=== PATIENT | female | born 1985 | race Caucasian/White ===

== ENCOUNTER 2016-10-20 22:50 | Emergency (ER) | payer MEDICAID ==
[2016-10-21] MEDS ORDERED: HYDROCODONE/ACETAMINOPHEN 5-325 MG 6 TAB/DSPK PO PRN (01:23)
--- NOTE | 2016-10-21 01:25 | ER Document Report ---
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 States she's had this pain for the past 3 weeks and is pending a consultation with vascular surgery at [place] for possible correction of this AV malformation became to the emergency department today as she could not sleep secondary to the pain in her hand. Nothing improves or worsens the pain. She has been trying ibuprofen. Denies any focal weakness or numbness. TRAVEL OUTSIDE OF THE U[place] IN LAST 30 DAYS: No - Related Data Allergies/Adverse Reactions: lithium [[place]] Allergy (Intermediate, Verified 10/20/16 23:03) Hives Past Medical History - General Information source: Patient - Social History Smoking Status: Never Smoker Frequency of alcohol use: None Drug Abuse: None Lives with: Spouse/Significant other Family History: Reviewed & Not Pertinent Neurological Medical History: Denies: Hx Seizures Renal/ Medical History: Denies: Hx Peritoneal Dialysis Musculoskeltal Medical History: Denies Hx Arthritis Psychiatric Medical History: Reports: Hx Bipolar Disorder, Hx Depression Past Surgical History: Reports: Hx Section, Hx Cholecystectomy, Hx Orthopedic Surgery, Hx Tubal Ligation, 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 Denies: Hx Hysterectomy - Immunizations Hx Diphtheria, Pertussis, Tetanus Vaccination: Yes Review of Systems - Review of Systems Notes: Constitutional: Negative for fever. HENT: Negative for sore throat. Eyes: Negative for visual changes. Cardiovascular: Negative for chest pain. Respiratory: Negative for shortness of breath. Gastrointestinal: Negative for abdominal pain, vomiting or diarrhea. Genitourinary: Negative for dysuria. Musculoskeletal: Positive for right hand pain Skin: Negative for rash. Neurological: Negative for headaches, weakness or numbness. 10 point ROS negative except as marked above and in HPI. Physical Exam - Vital signs Vitals: Temp Pulse Resp BP Pulse Ox 97.5 F 80 20 116/75 97 10/20/16 23:05 10/20/16 23:05 10/20/16 23:05 10/20/16 23:05 10/20/16 23:05 Interpretation: Normal Notes: PHYSICAL EXAMINATION: GENERAL: Well-appearing, well-nourished and in no acute distress. HEAD: Atraumatic, normocephalic. EYES: Pupils equal round and reactive to light, extraocular movements intact, sclera anicteric, conjunctiva are normal. ENT: nares patent, oropharynx clear without exudates. Moist mucous membranes. NECK: Normal range of motion, supple without lymphadenopathy LUNGS: Breath sounds clear to auscultation bilaterally and equal. No wheezes rales or rhonchi. HEART: Regular rate and rhythm without murmurs ABDOMEN: Soft, nontender, normoactive bowel sounds. No guarding, no rebound. No masses appreciated. EXTREMITIES: There is what appears to be a radial AV malformation on the right with mild swelling of the right hand. AIN, PIN, IO intact. RMU sensory distribution intact NEUROLOGICAL: No focal neurological deficits. Moves all extremities spontaneously and on command. PSYCH: Normal mood, normal affect. SKIN: Warm, Dry, normal turgor, no rashes or lesions noted. 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 She presents tonight because the pain to this area has gotten worse over the past 3 weeks and is preventing her from sleeping tonight. Nothing is otherwise new or different. She does have capillary refill approximately 3 seconds all digits of the right hand. 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 RMU sensory distribution is within normal limits. Will prescribe a small amount of pain medication and I'm concerned the patient urgently follow-up with vascular surgery and return for any new or worsening symptoms. - Vital Signs Vital signs: Temp Pulse Resp BP Pulse Ox 97.5 F 79 16 129/79 H 97 10/20/16 23:05 10/21/16 01:49 10/21/16 01:49 10/21/16 01:49 10/21/16 01:49 Discharge - Discharge Clinical Impression: AVM (arteriovenous malformation), Right hand pain Condition: Good Disposition: HOME, SELF-CARE Additional Instructions: Please take the pain medication that has been prescribed, [place] 1-2 tablets every 6 hours as needed for severe pain not controlled by ibuprofen. Please urgently follow-up with vascular surgery at either [place] or [facility] for consideration of repair of what appears to be an AV malformation of your radial artery. Return for worsening pain, loss of color to the right hand, or any other symptoms that are worrisome to you. Prescriptions: Hydrocodone/Acetaminophen [[place] 5-325 mg Tablet] 1 - 2 tab PO Q6HP PRN #12 tablet PRN Reason: Forms: Return to Work
[2016-10-21 01:51] VITALS: BP 129/79
== END 2016-10-21 01:51 | disposition home or self-care (01) ==
LOC: ER 22:50
DX: Q27.31 Arteriovenous malformation of vessel of upper limb (principal); M79.641 Pain in right hand; Z88.8 Allergy status to other drugs, medicaments and biological substances; Z98.890 Other specified postprocedural states
CPT/HCPCS: 99283

== ENCOUNTER 2016-11-08 20:41 | Emergency (ER) | payer MEDICAID ==
--- NOTE | 2016-11-08 22:11 | ER Document Report ---
HPI - HPI Patient complains to provider of: right knee pain Onset: This afternoon Onset/Duration: Sudden, Persistent Quality of pain: Achy Severity: Severe Pain Level: 4 Context: Patient presents to the emergency department with complaints of right knee pain. Patient reports she was playing on slip and slide with the kids this afternoon and hurt her knee. She doesn't remember twisting it or falling on her knee, it just started hurting. She reports she could walk on the knee at first. As the day went on the knee hurt more. She complains of pain when flexing her knee. Denies past medical history of knee injury. No other complaints such as fever vomiting diarrhea. 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 Denies: Hx Hysterectomy - Immunizations Hx Diphtheria, Pertussis, Tetanus Vaccination: Yes Vertical Provider Document - CONSTITUTIONAL Agree With Documented VS: Yes Exam Limitations: No Limitations General Appearance: WD/WN, Mild Distress - Winces when her knee is palpated - INFECTION CONTROL TRAVEL OUTSIDE OF THE [place].S. IN LAST 30 DAYS: No - HEENT HEENT: Atraumatic, Normocephalic - NECK Neck: Normal Inspection, Supple. negative: Lymphadenopathy-Left, Lymphadenopathy-Right - RESPIRATORY Respiratory: Breath Sounds Normal, No Respiratory Distress O2 Sat by Pulse Oximetry: 97 - CARDIOVASCULAR Cardiovascular: Regular Rate - MUSCULOSKELETAL/EXTREMETIES Musculoskeletal/Extremeties: MAEW, FROM, Tender - Right medial knee tender to palpation no obvious deformity - NEURO Level of Consciousness: Awake, Alert, Appropriate - DERM Integumentary: Warm, Dry Adult Front & Back Diagram: 1 - Reports pain with palpation Course - Re-evaluation Re-evalutation: 11/09/16 00:35 Patient instructed on negative x-ray. Patient instructed on Otoniel wrap and crutches ibuprofen for the pain. Patient instructed follow up with orthopedics possible injury to the meniscus. She verbalized understanding to all instructions. - Vital Signs Vital signs: Temp Pulse Resp BP Pulse Ox 97.5 F 76 12 135/63 H 97 11/08/16 20:48 11/08/16 20:48 11/08/16 20:48 11/08/16 20:48 11/08/16 20:48 - Diagnostic Test Radiology reviewed: Image reviewed, Reports reviewed - Diagnostic report text EXAM DESCRIPTION: KNEE RIGHT 4 VIEWS COMPLETED DATE/TIME: 2016 9:53 pm REASON FOR STUDY: Pain s/p injury COMPARISON: None. NUMBER OF VIEWS: Four views. TECHNIQUE: AP, lateral, and both oblique radiographic images acquired of the right knee. LIMITATIONS: None. FINDINGS: MINERALIZATION: Normal. BONES: No acute fracture or dislocation. No worrisome bone lesions. JOINT: No effusion. SOFT TISSUES: No soft tissue swelling. No radio-opaque foreign body. OTHER: No other significant finding. TECHNICAL DOCUMENTATION: JOB ID: [id number] [employer]- All Rights Reserved RAD/KNEE RIGHT 4 VIEWS IMPRESSION: NO RADIOGRAPHIC EVIDENCE OF ACUTE INJURY Procedures - Immobilization Right Knee Immobilizer type: Otoniel wrap Performed by: Other - PRODUCTION MECHANIC Post-Proc Neuro Vasc Exam: Unchanged from pre-exam Discharge - Discharge Clinical Impression: Right medial knee pain, Elevated blood pressure reading Condition: Stable Disposition: HOME, SELF-CARE Instructions: Suspected Internal Knee Injury ([facility]), Use of Crutches ([facility]), Ice & Elevation ([facility]), Use of Ajlt-Sol-Iokrvjf Ibuprofen ([facility]), Otoniel Wrap ([facility]) Additional Instructions: *You have been evaluated for right knee pain, elevated blood pressure reading *Maintain the otoniel wrap and crutches *Rest/Ice/Elevate the knee *Follow up with orthopedics within one week-call for an appointment tomorrow *Take ibuprofen as indicated *Return to ED for worsening condition, changes, needs Forms: Elevated Blood Pressure, Return to Work Referrals: ALSYSA SYKES MD [Primary Care Provider] - Follow up in 3-5 days [facility] [Provider Group] - Follow up tomorrow
[2016-11-08 22:33] VITALS: BP 140/92
== END 2016-11-08 22:32 | disposition home or self-care (01) ==
LOC: ER 20:41
DX: M25.561 Pain in right knee (principal); R03.0 Elevated blood-pressure reading, without diagnosis of hypertension; Z90.49 Acquired absence of other specified parts of digestive tract; Z98.51 Tubal ligation status
CPT/HCPCS: 99283

== ENCOUNTER → 2017-01-07 | Outpatient (CLI) | payer MEDICAID ==
[2017-01-07 08:57] LABS: ABSOLUTE EOSINOPHILS # (AUTO) 0.3 10^3/uL (0.0-0.6); ABSOLUTE LYMPHOCYTES (AUTO) 1.6 10^3/uL (0.5-4.7); ABSOLUTE MONOCYTES (AUTO) 0.6 10^3/uL (0.1-1.4); ABSOLUTE NEUT (AUTO) 3.5 10^3/uL (1.7-8.2); BASOPHILS % (AUTO) 0.5 % (0-2); EOSINOPHILS % (AUTO) 4.8 % (0-6); HEMATOCRIT 40.9 % (36.0-47.0); HEMOGLOBIN 13.2 g/dL (12.0-15.5); HGB HCT DIFFERENCE -1.3; LYMPHOCYTES % (AUTO) 26.4 % (13-45); MEAN CORPUSCULAR HEMOGLOBIN 26.4 pg (27.0-33.4); MEAN CORPUSCULAR HGB CONC 32.3 g/dL (32.0-36.0); MEAN CORPUSCULAR VOLUME 82 fl (80-97); MONOCYTES % (AUTO) 10.4 % (3-13); RED BLOOD COUNT 5.01 10^6/uL (3.72-5.28); RED CELL DISTRIBUTION WIDTH 14.8 % (11.5-14.0); SEGMENTED NEUTROPHILS % (AUTO) 57.9 % (42-78)
[2017-01-07 09:21] LABS: ANION GAP 12 (5-19); BLOOD UREA NITROGEN 20 mg/dL (7-20); CARBON DIOXIDE 23 mmol/L (22-30); CHLORIDE 106 mmol/L (98-107); CREATININE RESULT 0.63 mg/dL (0.52-1.25); GLUCOSE 88 mg/dL (75-110); POTASSIUM 4.2 mmol/L (3.6-5.0); SODIUM 141.1 mmol/L (137-145)
--- NOTE | 2017-01-07 12:59 | EKG REPORT ---
SEVERITY:- NORMAL ECG - SINUS RHYTHM : Confirmed by: Adalid Ratliff MD 07-Jan-2017 12:58:27
== END ==
LOC: OD 07:42
PROVIDERS: ATTEND Orthopaedic Surgery
DX: Z01.818 Encounter for other preprocedural examination (principal)
CPT/HCPCS: 36415; 80048; 85025; 93005; 93010

== ENCOUNTER 2017-04-15 08:56 | Emergency (ER) | payer MEDICAID ==
[2017-04-15] MEDS ORDERED: KETOROLAC TROMETHAMINE INJ/PF 30 MG/1 ML SDV IV ONE (09:27)
[2017-04-15] MEDS ORDERED: PROCHLORPERAZINE EDISYLATE INJ 10 MG/2 ML VIAL IV ONE (09:27)
[2017-04-15] MEDS ORDERED: DIPHENHYDRAMINE HCL 50 MG CAPSULE PO ONE (09:27)
[2017-04-15] MEDS ORDERED: NORMAL SALINE 1000 ML 1,000 ML IV ONE (09:28)
--- NOTE | 2017-04-15 09:33 | ER Document Report ---
ED Headache - General Chief Complaint: Headache Stated Complaint: HEADACHE AND VOMITING Time Seen by Provider: 04/15/17 09:18 Mode of Arrival: Ambulatory Information source: Patient Notes: 32-year-old female presents to ED for complaint of headache 2. She states she was down vomiting since yesterday. No history of any trauma. She states she took ibuprofen yesterday and Tylenol today. She has a history of AV malformation with dizziness. She states it is hard to see out of more than when I had a time. Due to the headache TRAVEL OUTSIDE OF THE U.[place] IN LAST 30 DAYS: No - HPI Patient complains to provider of: Headache Patient reports: Other - AV malformation of right arm Onset: Other - 2 days Onset was: Gradual Timing: Still present Quality of pain: No pain, Throbbing Severity: Moderate Associated symptoms: Dizzy, Nausea/vomiting, Photophobia Exacerbated by: Light, Noise Similar symptoms previously: Yes Recently seen / treated by doctor: Yes - Related Data Allergies/Adverse Reactions: lithium [[place]] Allergy (Intermediate, Verified 11/08/16 20:50) Hives Past Medical History - General Information source: Patient - Social History Smoking Status: Never Smoker Cigarette use (# per day): No Chew tobacco use (# tins/day): No Smoking Education Provided: No Frequency of alcohol use: Occasional Drug Abuse: None Occupation: [employer] Lives with: Family Family History: Reviewed & Not Pertinent Patient has suicidal ideation: No - Past Medical History Cardiac Medical History: Reports: None Pulmonary Medical History: Reports: Hx Asthma EENT Medical History: Reports: None Neurological Medical History: Reports: None Endocrine Medical History: Reports: None Renal/ Medical History: Reports: None Malignancy Medical History: Reports: None GI Medical History: Reports: None Musculoskeltal Medical History: Reports None Skin Medical History: Reports None Psychiatric Medical History: Reports: Hx Bipolar Disorder, Hx Depression Traumatic Medical History: Reports: None Infectious Medical History: Reports: None Past Surgical History: Reports: Hx Section, Hx Cholecystectomy, Hx Orthopedic Surgery, Hx Tubal Ligation, Hx Vascular Surgery - AV Malformation of R arm - Immunizations Hx Diphtheria, Pertussis, Tetanus Vaccination: Yes Review of Systems - Review of Systems Constitutional: No symptoms reported EENT: No symptoms reported Cardiovascular: No symptoms reported Respiratory: No symptoms reported Gastrointestinal: Nausea, Vomiting Genitourinary: No symptoms reported Female Genitourinary: No symptoms reported Musculoskeletal: No symptoms reported Skin: No symptoms reported Hematologic/Lymphatic: No symptoms reported Neurological/Psychological: Headaches -: Yes All other systems reviewed and negative Physical Exam - Vital signs Vitals: Temp Pulse Resp BP Pulse Ox 99.7 F 93 14 136/74 H 96 04/15/17 08:59 04/15/17 08:59 04/15/17 08:59 04/15/17 08:59 04/15/17 08:59 Interpretation: Normal - General General appearance: Appears well, Alert - HEENT Head: Normocephalic, Atraumatic Eyes: Normal Pupils: PERRL Visual sutton normal: No Ears: Normal External canal: Normal Tympanic membrane: Normal Sinus: Normal Nasal: Swelling, Clear rhinorrhea Mouth/Lips: Normal Mucous membranes: Normal Pharynx: Normal Neck: Normal - Respiratory Respiratory status: No respiratory distress Chest status: Nontender Breath sounds: Normal Chest palpation: Normal - Cardiovascular Rhythm: Regular Heart sounds: Normal auscultation Murmur: No - Abdominal Inspection: Normal Distension: No distension Bowel sounds: Normal Tenderness: Nontender Organomegaly: No organomegaly - Back Back: Normal, Nontender - Extremities General upper extremity: Normal inspection, Nontender, Normal color, Normal ROM , Normal temperature General lower extremity: Normal inspection, Nontender, Normal color, Normal ROM , Normal temperature, Normal weight bearing. No: Sam's sign - Neurological Neuro grossly intact: Yes - Steady gait pupils equal reactive to light answers questions freely. At th Cognition: Normal Orientation: AAOx4 [place] Coma Scale Eye Opening: Spontaneous [place] Coma Scale Verbal: Oriented [place] Coma Scale Motor: Obeys Commands [place] Coma Scale Total: 15 Speech: Normal Cranial nerves: Normal Motor strength normal: LUE, RUE, LLE, RLE Additional motor exam normals: Equal optometrist Babinski reflex: Normal (flexor plantar) Sensory: Normal - Psychological Associated symptoms: Normal affect, Normal mood - Skin Skin Temperature: Warm Skin Moisture: Dry Skin Color: Normal Course - Re-evaluation Re-evalutation: 04/15/17 19:18 Patient was treated with Toradol Compazine and Benadryl and IV fluids. Patient got relief from her headaches. Patient was discharged home to follow-up with her primary doctor. - Vital Signs Vital signs: Temp Pulse Resp BP Pulse Ox 97.5 F 84 16 127/86 H 97 04/15/17 11:20 04/15/17 11:20 04/15/17 11:20 04/15/17 11:20 04/15/17 11:20 Discharge - Discharge Clinical Impression: Headache Qualifiers: Headache type: unspecified Headache chronicity pattern: unspecified pattern Intractability: not intractable Qualified Code(s): R51 - Headache Condition: Stable Disposition: HOME, SELF-CARE Additional Instructions: HEADACHE: The physician does not feel that the headache you are experiencing has a serious underlying cause. Most headaches are due to emotional stress, with resultant muscle tension (tension headache). Occasionally, headaches are secondary to changes in the blood vessels of the scalp (vascular headache and migraine headache). Sometimes, a headache is the first symptom of another developing illness, such as a viral infection. You have no evidence of stroke, bleeding, meningitis, or other serious cause of your headache. The treatment of headaches varies with the severity and cause of the pain. Not all headaches need pain shots. In fact, there is evidence that using narcotics for headaches may make them worse in the long run. The physician will determine the therapy that's in your best interest. If you develop a fever, if the headache is different from any you've previously experienced, or if the headache progressively worsens, then call your physician at once or go to the emergency room. USE OF DIPHENHYDRAMINE: Diphenhydramine (Benadryl) is an antihistamine and has been recommended to help treat your headache and to prevent side effects of other medications used to treat headaches. The medication can be repeated four times daily. Age Elixir (12.5 mg/tsp) 25 mg pill adult 1-2 tabs Antihistamines may cause drowsiness, especially with the first dose. Do not operate machinery or drive while under the effects of the medication. Do not combine the medication with alcohol, or with any other medication without talking to your doctor. INTRAVENOUS COMPAZINE FOR HEADACHE: You have received therapy for headaches, using intravenous Compazine. This treatment is dramatically successful in relieving the headache in about 50 percent of cases. When it works, it provides a rapid method of eliminating the headache without resorting to narcotics (and the problems associated with them). Most patients still feel fully alert after the Compazine, but others may be slightly drowsy. It's best not to drive or work with machinery for six to eight hours. Do not take alcohol or other medication unless you discuss it with the doctor. If you develop tightness and spasms in your muscles, especially the neck and tongue, you should return. This is a side effect which can be treated. TORADOL INJECTION: You have been given an injection of ketorolac tromethamine (Toradol). This is an excellent, safe drug for pain control. It also has potent antiinflammatory action. You should have significant pain relief within about one hour. Toradol is not addicting and is non-sedating. It does not interfere with driving or work. Call or return if you develop itching, hives, shortness of breath, or rash. Intravenous (IV) Fluids As part of your care today, you received intravenous (IV) fluids. IV fluids are administered to patients who are dehydrated or to those who have certain chemical (electrolyte) abnormalities that need correcting. FOLLOW-UP CARE: If you have been referred to a physician for follow-up care, call the physician s office for an appointment as you were instructed or within the next two days. If you experience worsening or a significant change in your symptoms, notify the physician immediately or return to the Emergency Department at any time for re-evaluation. Forms: Elevated Blood Pressure, Return to Work Referrals: PIPO SHOEMAKER DO [Primary Care Provider] - Follow up as needed
[2017-04-15 11:30] VITALS: BP 127/86
== END 2017-04-15 11:30 | disposition home or self-care (01) ==
LOC: ER 08:56
DX: R51 Headache (principal); R11.2 Nausea with vomiting, unspecified; R42 Dizziness and giddiness; H53.149 Visual discomfort, unspecified; Z88.8 Allergy status to other drugs, medicaments and biological substances; J45.909 Unspecified asthma, uncomplicated; J34.89 Other specified disorders of nose and nasal sinuses
CPT/HCPCS: 99283; 96361; 96374; 96375; J3490; J1885; J0780; J7030

== ENCOUNTER 2017-05-29 14:59 | Emergency (ER) | payer MEDICAID ==
[2017-05-29 15:21] VITALS: BP 134/73
--- NOTE | 2017-05-29 17:12 | ER Document Report ---
ED ENT - General Chief Complaint: Sore Throat Stated Complaint: THROAT PAIN Time Seen by Provider: 05/29/17 16:45 Notes: She complaining of right ear pain sore throat for last several days. History of ear infections. Started noticing some drainage out of the right ear yesterday as well. Took him some of her oxycodone that she had for her knee surgery and that is the only thing that helped for the pain. Denies any other symptoms at this time. Questionable intermittent fevers but no fever today. No vomiting. No chest pain. No shortness of breath. No abdominal pain. TRAVEL OUTSIDE OF THE [place] IN LAST 30 DAYS: No - HPI Patient complains to provider of: Ear problem, Throat problem Severity: Severe Pain Level: 4 Location of pain: Ears, Throat Associated symptoms: Ear pain, Ear drainage, Sore throat, Swollen glands. denies: Hearing loss, Headache, Stiff neck, Tinnitus, Vertigo - Related Data Allergies/Adverse Reactions: lithium [[place]] Allergy (Intermediate, Verified 05/29/17 15:21) Hives Past Medical History - General Information source: Patient - Social History Smoking Status: Never Smoker Frequency of alcohol use: None Drug Abuse: None Lives with: Family Family History: Reviewed & Not Pertinent Pulmonary Medical History: Reports: Hx Asthma Neurological Medical History: Denies: Hx Seizures Renal/ Medical History: Denies: Hx Peritoneal Dialysis Musculoskeltal Medical History: Denies Hx Arthritis Psychiatric Medical History: Reports: Hx Bipolar Disorder, Hx Depression Past Surgical History: Reports: Hx Section, Hx Cholecystectomy, Hx Orthopedic Surgery, Hx Tubal Ligation, 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 Denies: Hx Hysterectomy - Immunizations Hx Diphtheria, Pertussis, Tetanus Vaccination: Yes Review of Systems - Review of Systems Constitutional: Fever. denies: Malaise, Weakness EENT: See HPI, Ear pain, Throat pain. denies: Eye pain Cardiovascular: No symptoms reported Respiratory: No symptoms reported Gastrointestinal: No symptoms reported Musculoskeletal: No symptoms reported Skin: No symptoms reported Neurological/Psychological: No symptoms reported Physical Exam - Vital signs Vitals: Temp Pulse Resp BP Pulse Ox 98.6 F 85 16 134/73 H 97 05/29/17 15:19 05/29/17 15:19 05/29/17 15:19 05/29/17 15:19 05/29/17 15:19 Interpretation: Normal - General General appearance: Appears well, Alert - HEENT Head: Normocephalic, Atraumatic Eyes: Normal Pupils: PERRL Tympanic membrane: Bulging, Loss of landmarks, Other - Right ear with bulging, loss of landmarks and erythema, left TM unremarkable Mucous membranes: Normal Pharynx: Erythema - Respiratory Respiratory status: No respiratory distress Breath sounds: Normal - Cardiovascular Rhythm: Regular Heart sounds: Normal auscultation - Abdominal Inspection: Normal Bowel sounds: Normal - Neurological Cognition: Normal Orientation: AAOx4 Course - Re-evaluation Re-evalutation: 05/29/17 17:08 We will begin treatment patient on antibiotics both oral and topical. - Vital Signs Vital signs: Temp Pulse Resp BP Pulse Ox 98.6 F 85 16 134/73 H 97 05/29/17 15:19 05/29/17 15:19 05/29/17 15:19 05/29/17 15:19 05/29/17 15:19 Discharge - Discharge Clinical Impression: Right otitis media Qualifiers: Otitis media type: unspecified Qualified Code(s): H66.91 - Otitis media, unspecified, right ear Disposition: HOME, SELF-CARE Additional Instructions: Otitis Media You have a middle ear infection (otitis media). This is usually a complication of a cold or sore throat. The middle ear cavity becomes filled with infection. Pressure and stretching of the ear drum cause pain. Antibiotics are required. A 10 day course is usually prescribed. A decongestant may be recommended if you have a "runny nose." You may need anesthetic drops or other pain medication. A follow-up exam may be recommended to make sure the infection has completely cleared. If the ear begins to drain, it means the ear drum has ruptured. This will usually heal spontaneously. However, it means you should keep the ear dry until re-examined by a doctor. Call the physician or return for examination at once if there is severe headache, stiff neck, confusion, increasing fever, or dizziness. You should improve significantly within two days. If you're not better, call the doctor. Prescriptions: Amox Tr/Potassium Clavulanate [Augmentin 875-125 Tablet] 1 tab PO BID 10 Days tablet Neomy Sulf/Polymyx B Sulf/Hc [Cortisporin Ear Suspension] 10 ml OT TID 10 Days # 10 drops.susp
== END 2017-05-29 17:29 | disposition home or self-care (01) ==
LOC: ER 14:59
DX: H66.91 Otitis media, unspecified, right ear (principal); J02.9 Acute pharyngitis, unspecified; Z79.899 Other long term (current) drug therapy
CPT/HCPCS: 99282

== ENCOUNTER 2017-07-26 19:01 | Emergency (ER) | payer MEDICAID ==
[2017-07-26] MEDS ORDERED: TETRACAINE HCL 0.5% OPH SOLN 2 ML OU ONE (20:30)
--- NOTE | 2017-07-26 22:01 | ER Document Report ---
ED Eye Complaint - General Chief Complaint: Eye Problem Stated Complaint: EYE PAIN/REDNESS Time Seen by Provider: 07/26/17 21:30 Mode of Arrival: Ambulatory Information source: Patient TRAVEL OUTSIDE OF THE [place] IN LAST 30 DAYS: No - HPI Onset: This morning Eye location: Right Injury: No Severity: Mild Notes: Patient arrives with complaints of right eye redness and pain. She states that she woke up this morning and her right eyelid was matted shut and her right eye was red. She denies any injuries to the eye. She denies any drainage from the eye. She denies any significant lost vision. She does complain of some mild blurred vision in the right eye but states that she does not have her contact and. Patient is a contact wearer, but does not sleep in her contacts and states that she did not sleep in her contacts last night. She denies any fevers. She denies any headache. She denies any unilateral numbness tingling or weakness. She denies any chest pain or shortness of breath. She has no other complaints at this time. - Related Data Allergies/Adverse Reactions: lithium [[place]] Allergy (Intermediate, Verified 07/26/17 19:01) Hives Past Medical History - Social History Smoking Status: Never Smoker Chew tobacco use (# tins/day): No Frequency of alcohol use: None Family History: Reviewed & Not Pertinent Patient has suicidal ideation: No Patient has homicidal ideation: No Pulmonary Medical History: Reports: Hx Asthma Neurological Medical History: Denies: Hx Seizures Renal/ Medical History: Denies: Hx Peritoneal Dialysis Musculoskeltal Medical History: Denies Hx Arthritis Psychiatric Medical History: Reports: Hx Bipolar Disorder, Hx Depression Past Surgical History: Reports: Hx Section, Hx Cholecystectomy, Hx Orthopedic Surgery, Hx Tubal Ligation, 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 Denies: Hx Hysterectomy - Immunizations Hx Diphtheria, Pertussis, Tetanus Vaccination: Yes Review of Systems - Review of Systems -: Yes All other systems reviewed and negative Physical Exam - Vital signs Vitals: Temp Pulse Resp BP Pulse Ox 99.1 F 95 18 134/84 H 94 07/26/17 19:05 07/26/17 19:05 07/26/17 19:05 07/26/17 19:05 07/26/17 19:05 - Notes Notes: GENERAL: alert, cooperative, nontoxic, no distress. HEAD: normocephalic, atraumatic EYES: Mild injection to the right conjunctival. No drainage. No periorbital redness or swelling. No tenderness. Pupils are equal round react to light bilaterally. Extraocular muscles are intact bilaterally. No foreign body identified. Upper eyelid was everted with no foreign body identified. Fluoracen staining shows no corneal abrasions, no corneal ulcerations, no dendritic lesions. EARS: no external swelling, no external redness NOSE: atraumatic, no external swelling MOUTH/THROAT: mucous membranes moist and pink NECK: soft, supple, full range of motion, no meningismus. CHEST: no distress, lungs clear and equal throughout. No wheezing, rales, rhonchi. CARDIAC: regular rate and rhythm, no murmur, normal capillary refill, normal pulses. BACK: full range of motion, no CVA tenderness. EXTREMITIES: full range of motion of all extremities. No redness, no swelling. NEURO: alert and oriented 3, no focal deficits, full range of motion of all extremities. PYSCH: appropriate mood, affect. Patient is cooperative. SKIN: pink, warm, dry, no rash. Course - Re-evaluation Re-evalutation: 07/26/17 22:14 Patient is nontoxic appearing with stable vitals. The patient arrives with complaints of right eye redness and matting since this morning. She is a contact wearer. Aside from injection to the eye the eye exam is unremarkable with no foreign bodies no sign of periorbital cellulitis. Corneal exam shows no abrasions, ulcerations, dendritic lesions. Patient will be placed on Ciloxan eyedrops for conjunctivitis. She was instructed to not wear her contacts for at least 1 week. Follow-up with her eye doctor if she has not improved in the next 2 days of using the eyedrops, sooner for worsening pain, fever, blurred or loss vision, redness or swelling around the outside the eye, or for any further concerns. The patient is noted to have elevated blood pressure during today's emergency department visit. The patient was informed of this finding. The patient was instructed that this may be related to pre-hypertension and requires further evaluation with a primary care provider. The patient has no hypertensive symptoms at this time. The patient's emergency department workup and current diagnosis were explained to the patient and or family. Follow-up instructions were provided. Medications if prescribed were discussed. Instructions for when to return to the emergency department including specific worrisome symptoms were discussed with the patient and/or family. - Vital Signs Vital signs: Temp Pulse Resp BP Pulse Ox 99.1 F 95 18 134/84 H 94 07/26/17 19:05 07/26/17 19:05 07/26/17 19:05 07/26/17 19:05 07/26/17 19:05 Discharge - Discharge Clinical Impression: Conjunctivitis, right eye Qualifiers: Conjunctivitis type: acute Acute conjunctivitis type: unspecified Qualified Code(s): H10.31 - Unspecified acute conjunctivitis, right eye Condition: Stable Instructions: Conjunctivitis ([facility]), Eyedrop Use ([facility]) Additional Instructions: Take medications as prescribed. Wash her hands frequently. Follow-up with your eye doctor if not improved in the next 2 days, sooner for increasing pain, fever, lost vision, redness or swelling around the outside of the eye, or any further concerns. Your blood pressure was elevated during today's visit. Have this rechecked with your doctor. Prescriptions: Ciprofloxacin HCl [Ciloxan 0.3% Oph Soln 2.5 ml] 1 drop OP Q4H 7 Days #1 bottle Forms: Elevated Blood Pressure, Smoking Cessation Education Referrals: [facility] [Provider Group] - Follow up as needed ISABELLE WOODSON MD [NO LOCAL MD] - Follow up as needed LENIN ROMO, OT [OPTHALMIC LINEN CHECKER] - Follow up as needed DAHIANA BOTELLO DO [ACTIVE STAFF] - Follow up as needed MERON LOPEZ MD [NO LOCAL MD] - Follow up as needed KAIT BASSETT MD [ACTIVE STAFF] - Follow up as needed JESSICA SMITH MD [NO LOCAL MD] - Follow up as needed HEIDI MADERA MD [ACTIVE STAFF] - Follow up as needed ELIZABETH العلي DO [ACTIVE STAFF] - Follow up as needed YOUSUF MCCLENDON MD [CONSULTING STAFF] - Follow up as needed ALIA BRUNER MD [CONSULTING STAFF] - Follow up as needed
[2017-07-26 22:24] VITALS: BP 122/75
== END 2017-07-26 22:24 | disposition home or self-care (01) ==
LOC: ER 19:01
DX: H10.31 Unspecified acute conjunctivitis, right eye (principal)
CPT/HCPCS: 99283

== ENCOUNTER → 2018-05-19 | Outpatient (CLI) | payer MEDICAID ==
[2018-05-19 13:59] LABS: IRON 52.4 ug/dL (37-170)
[2018-05-19 14:33] LABS: FERRITIN 80.1 ng/mL (6.2-137.0)
[2018-05-20 06:38] LABS: HEPATITIS A AB IGM Negative (Negative); HEPATITIS B CORE AB IGM Negative (Negative); HEPATITS B SURFACE ANTIGEN Negative (Negative)
[2018-05-20 08:24] LABS: HEPATITIS C VIRUS ANTIBODY <0.1 s/co ratio (0.0-0.9)
[2018-05-20 14:52] LABS: ANTINUCLEAR ANTIBODIES Negative (Negative)
== END ==
LOC: OD 12:49
PROVIDERS: ATTEND Internal Medicine Gastroenterology
DX: R10.11 Right upper quadrant pain (principal)
CPT/HCPCS: 36415; 80074; 82172; 82247; 82390; 82728; 82977; 83010; 83540; 83883; 84460; 86038; 86256

== ENCOUNTER 2018-05-25 08:02 | Day surgery (SDC) | payer MEDICAID ==
[2018-05-25] MEDS ORDERED: LIDOCAINE 2% INJ-PF (20 MG/ML) 10 ML AMPUL ONE (10:52)
[2018-05-25] MEDS ORDERED: ONDANSETRON HCL INJ/PF 4 MG/2 ML SDV ONE (10:52)
[2018-05-25] MEDS ORDERED: PROPOFOL INJ 200 MG/20 ML VIAL IV ONE (10:53)
[2018-05-25] MEDS ORDERED: SUCCINYLCHOLINE CHLORIDE INJ 200 MG/10 ML VIAL ONE (11:01)
[2018-05-25] MEDS ORDERED: FENTANYL CITRATE INJ/PF 100 MCG/2 ML AMPUL ONE (11:03)
[2018-05-25] MEDS ORDERED: MIDAZOLAM 2 MG/2 ML INJ ONE (11:03)
[2018-05-25] MEDS ORDERED: DEXAMETHASONE SOD PHOS INJ 10 MG/1 ML VIAL ONE (11:43)
[2018-05-25] MEDS ORDERED: SCOPOLAMINE HYDROBROMIDE 1.5 MG PATCH.TD72 ONE (11:46)
[2018-05-25] MEDS ORDERED: DEXTROSE 5%-1/2 NORMAL SALINE 1,000 ML IV PRN (11:57)
[2018-05-25] MEDS ORDERED: SIMETHICONE 80 MG TAB.CHEW ONE (11:59)
[2018-05-25] MEDS ORDERED: PROMETHAZINE HCL INJ 25 MG/1 ML VIAL INJ PRN (12:15)
[2018-05-25] MEDS ORDERED: SIMETHICONE 80 MG TAB.CHEW PO PRN (12:15)
[2018-05-25] MEDS ORDERED: ACETAMINOPHEN 325 MG TABLET PO PRN (12:15)
[2018-05-25] MEDS ORDERED: PROMETHAZINE HCL INJ 25 MG/1 ML VIAL IV PRN (12:27)
[2018-05-25] MEDS ORDERED: DIPHENHYDRAMINE HCL 50 MG/ML VIAL IV PRN (12:27)
[2018-05-25] MEDS ORDERED: MEPERIDINE HCL/PF INJ 25 MG/1 ML DISP.SYRIN IV PRN (12:27)
[2018-05-25 13:42] VITALS: BP 126/902
--- NOTE | 2018-05-25 16:04 | Operative Report ---
Operative Report DATE OF SURGERY: 05/25/18 Operative Report: The risks, benefits and alternatives of the procedure including the risks of bleeding, perforation requiring surgery are explained to the patient in detail and informed consent is obtained. The patient is brought back to the operating room and placed in the left, lateral decubital position. Timeout was called. Propofol medication is administered. A rectal examination is done which did not reveal any masses, tears or fissures. An Olympus videoscope is introduced into the patient's rectum. The scope was then carefully advanced all the way to the cecum. The cecum was identified by the usual anatomical landmarks including the ileocecal valve as well as the appendiceal office. Photodocumentation was obtained. The scope was then sequentially pulled back via the various segments of the colon including the ascending colon, hepatic flexure, transverse colon, splenic flexure, descending colon and finally into the rectosigmoid portions of the colon. Retroflexion maneuver was performed. The risks benefits and alternatives of the procedure explained to the patient in detail and informed consent is obtained.A GIF Olympus video scope was inserted into the patient's mouth and hypopharynx ,the esophagus is identified intubated and insufflated, the scope was then advanced through the esophagus stomach and duodenum, retroflexion maneuver is done the esophagus stomach and first and second portions of the duodenum examined PREOPERATIVE DIAGNOSIS: Rectal bleeding. Nausea vomiting POSTOPERATIVE DIAGNOSIS: Gastritis status post biopsy with a Helicobacter pylori. Mild right-sided colon inflammation status post biopsy rule out collagenous colitis. Internal hemorrhoids OPERATION: Colonoscopy with biopsy. EGD with biopsy SURGEON: MICHAEL KENT ANESTHESIA: LMAC TISSUE REMOVED OR ALTERED: As noted above. COMPLICATIONS: None. ESTIMATED BLOOD LOSS: None. INTRAOPERATIVE FINDINGS: As noted above. PROCEDURE: Patient tolerated the procedure well. No immediate postprocedure complications are noted. Patient discharged in good condition. Discharge date 05/25/2018. Discharge diet: Regular. Discharge activity: Regular. 2-3-week follow-up to discuss findings. Patient is instructed to call the office or proceed to the emergency room should there be any further problems or questions. Wait on the pathology.
== END 2018-05-25 13:25 | disposition home or self-care (01) ==
LOC: OROUT 08:02
PROVIDERS: ATTEND Internal Medicine Gastroenterology
DX: K29.50 Unspecified chronic gastritis without bleeding (principal); K52.9 Noninfective gastroenteritis and colitis, unspecified; K64.8 Other hemorrhoids; K92.1 Melena; E11.9 Type 2 diabetes mellitus without complications; E66.01 Morbid (severe) obesity due to excess calories; R06.02 Shortness of breath; Z68.41 Body mass index [BMI] 40.0-44.9, adult; Z79.84 Long term (current) use of oral hypoglycemic drugs; Z79.899 Other long term (current) drug therapy
CPT/HCPCS: 43239; 45380; 82962; 81025; 88342 ×2; 88305 ×2; J2250; J3010; J3490 ×2; J2405; J2704; J1100; 813; J0330

== ENCOUNTER → 2018-05-30 | Outpatient (CLI) | payer MEDICAID ==
--- NOTE | 2018-05-30 09:58 | RADIOLOGY REPORT (SQ) ---
EXAM DESCRIPTION: U/S ABDOMEN LIMITED W/O DOP COMPLETED DATE/TIME: 05/30/2018 9:35 am REASON FOR STUDY: RUQ PAIN (R10.11) R10.11 RIGHT UPPER QUADRANT PAIN COMPARISON: None. TECHNIQUE: Dynamic and static grayscale images acquired of the abdomen and recorded on PACS. Additio nal selected color Doppler and spectral images recorded. LIMITATIONS: None. FINDINGS: PANCREAS: The head and body of the pancreas are visualized demonstrating no definite abno rmality. LIVER: The liver demonstrate increased echogenicity consistent with fatty infiltration. The liver is borderline enlarged measuring 18.5 cm. LIVER VASCULATURE: Normal directional flow of the main portal vein and hepatic veins. GALLBLADDER: Status post cholecystectomy. ULTRASOUND-DETECTED BORRERO'S SIGN: Negative. INTRAHEPATIC DUCTS AND COMMON DUCT: CBD is normal measuring 6.6 mm. Intrahepatic ducts normal calibe r. No filling defects. INFERIOR VENA CAVA: Normal flow. AORTA: The upper abdominal aorta measures 1.8 cm in AP diameter. The mid abdominal aorta measures 2. 2 cm in AP diameter and distally 1.9 cm. RIGHT KIDNEY: The right kidney is normal measuring 13.2 cm in length Doppler flow to the right kidne y is noted. IMPRESSION: 1. Fatty infiltration the liver. Borderline hepatomegaly. Status post cholecystectomy . TECHNICAL DOCUMENTATION: JOB ID: [id number] SC-[id number] 2010 [employer]- All Rights Reserved Reading location - IP/workstation name: [email or web address]
== END ==
LOC: RAD 08:20
PROVIDERS: ATTEND Internal Medicine Gastroenterology
DX: R10.11 Right upper quadrant pain (principal)
CPT/HCPCS: 76705

== ENCOUNTER → 2018-05-31 | Outpatient (CLI) | payer MEDICAID ==
--- NOTE | 2018-05-31 10:09 | RADIOLOGY REPORT (SQ) ---
EXAM DESCRIPTION: CT ABDOMEN WITH IV ORAL CONT COMPLETED DATE/TIME: 05/31/2018 9:52 am REASON FOR STUDY: RUQ ABD PAIN (R10.11) R10.11 RIGHT UPPER QUADRANT PAIN COMPARISON: 05/30/2018 ultrasound. TECHNIQUE: CT scan of the abdomen performed with intravenous and with oral contrast using helical sc anning technique with dynamic intravenous contrast injection. Images reviewed with lung, soft tissue, and bone windows. Reconstructed coronal and sagittal MPR images reviewed. Delayed images for evaluat ion of the urinary system also acquired and evaluated. All images stored on PACS. All CT scanners at this facility use dose modulation, iterative reconstruction, and/or weight based d osing when appropriate to reduce radiation dose to as low as reasonably achievable (ALARA). [facility]: Dose Right [facility]: CareDose [facility]: Dose Right [facility]: Teradose 4D [facility]: mywaves CONTRAST TYPE AND DOSE: contrast/concentration: Isovue 350.00 mg/ml; Total Contrast Delivered: 100.0 ml; Total Saline Delivered: 72.0 ml RENAL FUNCTION: None required. The patient is less than 50 years old. RADIATION DOSE: CT Rad equipment meets quality standard of care and radiation dose reduction techniq ues were employed. CTDIvol: 25.8 - 29.0 mGy. DLP: 2035 mGy-cm. . LIMITATIONS: None. FINDINGS: LOWER CHEST: No significant findings. No nodules or infiltrates. LIVER: Diffusely fatty. No focal lesions. No duct dilatation. SPLEEN: Normal size. No focal lesions. PANCREAS: No masses. No significant calcifications. No adjacent inflammation or peripancreatic fluid collections. Pancreatic duct not dilated. GALLBLADDER: Surgically absent. ADRENAL GLANDS: No significant masses or asymmetry. RIGHT KIDNEY AND URETER: No solid masses. No significant calcification. No hydronephrosis or hydroure ter. LEFT KIDNEY AND URETER: No solid masses. No significant calcification. No hydronephrosis or hydrouret er. AORTA AND VESSELS: No aneurysm. No dissection. Renal arteries, SMA, celiac without stenosis. RETROPERITONEUM: No retroperitoneal adenopathy, hemorrhage or masses. BOWEL AND PERITONEAL CAVITY: No masses or inflammatory changes. No free fluid or peritoneal masses. APPENDIX: Normal. ABDOMINAL WALL: No masses. No hernias. BONES: No fracture or bone lesion. L5-S1 disc disease. OTHER: No other significant finding. IMPRESSION: No acute or suspicious abdominal abnormality. As seen on ultrasound, the liver is diffu sely fatty. No duct dilatation. Post cholecystectomy. TECHNICAL DOCUMENTATION: JOB ID: [id number] Quality ID # [id number]: Final reports with documentation of one or more dose reduction techniques (e.g., Au tomated exposure control, adjustment of the mA and/or kV according to patient size, use of iterative reconstruction technique) 2010 [employer]- All Rights Reserved Reading location - IP/workstation name: [email or web address]
== END ==
LOC: RAD 09:19
PROVIDERS: ATTEND Family Medicine
DX: R10.11 Right upper quadrant pain (principal)
CPT/HCPCS: 74160; 82565

== ENCOUNTER → 2018-07-20 | Outpatient (CLI) | payer MEDICAID ==
--- NOTE | 2018-07-20 14:09 | RADIOLOGY REPORT (SQ) ---
EXAM DESCRIPTION: LUMBAR SPINE COMPLETE COMPLETED DATE/TIME: 07/20/2018 1:38 pm REASON FOR STUDY: CHRONIC MICHAEL LBP WITH BILATERAL SCIATICA R79.89 OTHER SPECIFIED ABNORMAL FINDINGS OF BLOOD CHEMISTRY COMPARISON: 09/21/2014. NUMBER OF VIEWS: Five views including obliques. TECHNIQUE: AP, lateral, oblique, and sacral radiographic images acquired of the lumbar spine. LIMITATIONS: None. FINDINGS: MINERALIZATION: Normal. SEGMENTATION: Normal. No transitional anatomy. ALIGNMENT: Normal. VERTEBRAE: Maintained height. No fracture or worrisome bone lesion. DISCS: Preserved height. No significant osteophytes or end plate irregularity. POSTERIOR ELEMENTS: Pedicles and facets are intact. No pars defect or posterior arch defects. HARDWARE: None in the spine. PARASPINAL SOFT TISSUES: Normal. PELVIS: Intact as visualized. No fractures or worrisome bone lesions. SI joints intact. OTHER: No other significant finding. IMPRESSION: NORMAL 5 VIEW LUMBAR SPINE. TECHNICAL DOCUMENTATION: JOB ID: [id number] [employer]- All Rights Reserved Reading location - IP/workstation name: [email or web address]
== END ==
LOC: OD 12:57
PROVIDERS: ATTEND Family Medicine
DX: R79.89 Other specified abnormal findings of blood chemistry (principal)
CPT/HCPCS: 72110

== ENCOUNTER → 2018-07-29 | Outpatient (CLI) | payer MEDICAID ==
--- NOTE | 2018-07-29 11:36 | RADIOLOGY REPORT (SQ) ---
EXAM DESCRIPTION: CTA HEAD COMPLETED DATE/TIME: 07/29/2018 9:56 am REASON FOR STUDY: Q27.30 ARTERIOVENOUS MALFORMATION, SITE UNSPECIFIED Q27.30 ARTERIOVENOUS MALFORMA TION, SITE UNSPECIFIED COMPARISON: None. TECHNIQUE: Post IV contrast scanning, thin section axial imaging through the brain to evaluate the a rterial structures. Source and MIP images are saved and reviewed on PACS. Advanced 3D imaging as volume-rendering, MIPs, SSD performed? yes All CT scanners at this facility use dose modulation, iterative reconstruction, and/or weight based d osing when appropriate to reduce radiation dose to as low as reasonably achievable (ALARA). [facility]: Dose Right [facility]: CareDose [facility]: Dose Right [facility]: Teradose 4D [facility]: 120 Sports CONTRAST TYPE AND DOSE: contrast/concentration: Isovue 350.00 mg/ml; Total Contrast Delivered: 80.0 ml; Total Saline Delivered: 75.0 ml RENAL FUNCTION: Creatinine 0.6 LIMITATIONS: None. FINDINGS: [place]: The anterior, middle, posterior cerebral arteries are all patent. No ev idence of aneurysm or focal stenosis. POSTERIOR CIRCULATION: The distal vertebral arteries provide inflow to the bilateral PICA. Distal to the PICA takeoff bilaterally, the distal intracranial vertebral arteries and basilar artery are diff usely small. Left-sided origin posterior cerebral artery. 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 These findings are best shown on s agittal reconstruction images 51 through 54. No posterior fossa arteriovenous malformation or aneurysm. BRAIN: No gross enhancing lesions as visualized. The superior cerebral hemispheres are not included in the field of view. BONES: Intact as visualized. SINUSES: No fluid or mucosal thickening. OTHER: No other significant finding. IMPRESSION: No CT angio evidence of wrangell Isaac arteriovenous malformation or aneurysm. 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 TECHNICAL DOCUMENTATION: JOB ID: [id number] Quality ID # [id number]: Final reports with documentation of one or more dose reduction techniques (e.g., Au tomated exposure control, adjustment of the mA and/or kV according to patient size, use of iterative reconstruction technique) 2010 [employer]- All Rights Reserved Reading location - IP/workstation name: [email or web address]-
== END ==
LOC: RAD 09:00
PROVIDERS: ATTEND Family Medicine
DX: Q27.30 Arteriovenous malformation, site unspecified (principal)
CPT/HCPCS: 70496; 82565

== ENCOUNTER → 2018-08-01 | Outpatient (CLI) | payer MEDICAID ==
--- NOTE | 2018-08-01 16:19 | XCELERA REPORT ---
[address] [address] Transthoracic Echocardiogram Report Name: WILLIAMS MARTÍNEZ Age: 33 yrs Gender: Female : 1985 Patient Status: Outpatient Patient Location: [facility] Study Date: 08/01/2018 09:30 AM Height: 61 in Weight: 250 lb BSA: 2.1 m2 Reason For Study: ARTERIOVENOUS MALFORMATION Ordering Physician: LEXA QUINTEROS Performed By: Ed Talbot Interpretation Summary Supervisor Hand Silvering unable to see endocardial borders in A4C and A2C due to 5'1,and 250#. Clinical Dx said to be AV malformation. Min post peric. effusion. Ao root not enlarged, AV configuration poorly seen. No doppler evidence of and no AR, Mild mitral annular calcification, no MS, no MVP, and no MR with no LA enlargement. LVH is concentric and mild, LVEF is grossly normal, LV diastolic dysfunction, Unable to do biplane LVEF. Probably no regional wall motion abnormality, incomplete segmental analysis, and no LV enlargement. normal size RA and RV with mild TR , RVSP 42 mm Hg assuming RVSP 8mm Hg, IVC min collapse <50% is upper normal size. MMode/2D Measurements & Calculations RVDd: 3.3 cm LVIDd: 4.7 cm FS: 36.7 % Ao root diam: 3.0 cm IVSd: 1.2 cm LVIDs: 3.0 cm EDV(Teich): 102.6 ml LVPWd: 1.2 cm ESV(Teich): 34.4 ml Ao root area: 6.9 cm2 LA dimension: 3.4 cm EF(Teich): 66.5 % Doppler Measurements & Calculations MV E max dina: MV P1/2t max dina: Ao V2 max: LV V1 max P.8 cm/sec 96.0 cm/sec 147.4 cm/sec 5.2 mmHg MV A max dina: MV P1/2t: 54.7 msec Ao max P.7 mmHg LV V1 max: 87.1 cm/sec MVA(P1/2t): 4.0 cm2 114.5 cm/sec MV E/A: 0.86 MV dec slope: 514.4 cm/sec2 MV dec time: 0.14 sec PA V2 max: TR max dina: MV P1/2t-pr_phl: 95.3 cm/sec 309.5 cm/sec 54.7 msec PA max PG: TR max P.3 mmHg 3.6 mmHg Left Ventricle The left ventricle is grossly normal size. There is mild concentric left ventricular hypertrophy. The left ventricular ejection fraction is normal. tube test technician unable to do biplane LVEF due to poor endocardail definition. Doppler measurements suggest impaired left ventricular relaxation, which is associated with grade I/IV or mild diastolic dysfunction. Not all wall segments were well visualized. The left ventricular apex is not well visualized. Right Ventricle The right ventricle is grossly normal size. Atria The right atrium is normal in size. The left atrial size is normal. The interatrial septum is intact with no evidence for an atrial septal defect. Mitral Valve The mitral valve is normal in structure and function. There is mild mitral annular calcification. There is no evidence of mitral valve prolapse. There is no mitral valve stenosis. There is no mitral regurgitation noted. Aortic Valve The aortic valve is not well visualized secondary to technical limitations. Cannot exclude aortic valvular vegetation. There is no aortic valve stenosis. No aortic regurgitation is present. Tricuspid Valve The tricuspid valve is not well visualized, but is grossly normal. There is no tricuspid valve prolapse. There is no tricuspid stenosis. There is a mild amount of tricuspid regurgitation. Right ventricular systolic pressure is estimated to be elevated at 40-50mmHg. Pulmonic Valve The pulmonic valve is not well visualized. There is no pulmonic valvular regurgitation. Great Vessels The aortic root is normal size. Effusions Minimal pericardial effusion. I WMSI = 1.00 % Normal = 100 Segments Size X - Cannot 2 - 4 - 1-2 small Interpret 1 - Normal Hypokinetic 3 - AkineticDyskinetic 3-5 moderate 5 - 6-14 large Aneurysmal 15-16 diffuse : LEXA QUINTEROS > Adalid Ratliff
== END ==
LOC: SP 09:07
PROVIDERS: ATTEND Family Medicine
DX: Q27.30 Arteriovenous malformation, site unspecified (principal)
CPT/HCPCS: 93306

== ENCOUNTER 2019-08-05 19:26 | Emergency (ER) | payer MEDICAID ==
--- NOTE | 2019-08-05 20:01 | ER Document Report ---
ED Medical Screen (RME) - General Chief Complaint: Chest Pain Stated Complaint: CHEST PAIN,ARM PAIN, SHORTNESS OF BREATH Time Seen by Provider: 08/05/19 19:56 Primary Care Provider: LEXA QUINTEROS MD [Primary Care Provider] - Follow up as needed Mode of Arrival: Ambulatory Information source: Patient Notes: 34-year-old female with history of stroke high blood pressure bipolar presents emergency department with complaints of high blood pressure nausea chest pain with shortness of breath for the past 2 days. Reports no chest pain at this time reports her right arm hurts right now. She reports last night she has some chest pain felt short of breath and had the nausea. She reports she is taking medications for her high blood pressure but does not remember what they are. She is waiting for a text from her mother. She reports she has short-term memory problems. She reports the last time she had chest pain she had a stroke. I have greeted and performed a rapid initial assessment of this patient. A comprehensive ED assessment and evaluation of the patient, analysis of test results and completion of the medical decision making process will be conducted by additional ED providers. TRAVEL OUTSIDE OF THE [place] IN LAST 30 DAYS: No - Related Data Allergies/Adverse Reactions: lithium [[place]] Allergy (Intermediate, Verified 05/25/18 08:13) Hives Past Medical History - Past Medical History Cardiac Medical History: Reports: Hx Hypertension Denies: Hx Coronary Artery Disease, Hx Heart Attack Pulmonary Medical History: Denies: Hx Asthma, Hx Bronchitis, Hx COPD, Hx Pneumonia Neurological Medical History: Denies: Hx Cerebrovascular Accident, Hx Seizures Renal/ Medical History: Denies: Hx Peritoneal Dialysis Musculoskeltal Medical History: Denies Hx Arthritis Psychiatric Medical History: Reports: Hx Bipolar Disorder, Hx Depression Past Surgical History: Reports: Hx Section, Hx Cholecystectomy, Hx Orthopedic Surgery, Hx Tubal Ligation, 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 Denies: Hx Hysterectomy - Immunizations Hx Diphtheria, Pertussis, Tetanus Vaccination: Yes Physical Exam - Vital signs Vitals: Temp Pulse Resp BP Pulse Ox 98.2 F 84 16 154/98 H 97 08/05/19 19:43 08/05/19 19:43 08/05/19 19:43 08/05/19 19:43 08/05/19 19:43 Course - Vital Signs Vital signs: Temp Pulse Resp BP Pulse Ox 98.2 F 84 16 154/98 H 97 08/05/19 19:43 08/05/19 19:43 08/05/19 19:43 08/05/19 19:43 08/05/19 19:43 Doctor's Discharge - Discharge Referrals: LEXA QUINTEROS MD [Primary Care Provider] - Follow up as needed
--- NOTE | 2019-08-05 21:06 | RADIOLOGY REPORT (SQ) ---
EXAM DESCRIPTION: XR CHEST 2 VIEWS COMPLETED DATE/TME: 08/05/2019 19:59 CLINICAL HISTORY: 34 years, Female, cp sob COMPARISON: Prior study from 02/16/2016 NUMBER OF VIEWS: Two TECHNIQUE: Frontal and lateral radiographs were obtained LIMITATIONS: None. FINDINGS: Cardiac and mediastinal contours are stable. Lungs are clear. No pleural effusion or pneumothorax. IMPRESSION: No acute disease. copyright 2010 [employer]- All Rights Reserved
[2019-08-05 21:55] LABS: ABSOLUTE EOSINOPHILS # (AUTO) 0.3 10^3/uL (0.0-0.6); ABSOLUTE LYMPHOCYTES (AUTO) 1.8 10^3/uL (0.5-4.7); ABSOLUTE MONOCYTES (AUTO) 0.5 10^3/uL (0.1-1.4); ABSOLUTE NEUT (AUTO) 4.1 10^3/uL (1.7-8.2); BASOPHILS % (AUTO) 0.3 % (0-2); EOSINOPHILS % (AUTO) 4.1 % (0-6); HEMOGLOBIN 12.6 g/dL (12.0-15.5); LYMPHOCYTES % (AUTO) 26.3 % (13-45); MEAN CORPUSCULAR HEMOGLOBIN 26.5 pg (27.0-33.4); MEAN CORPUSCULAR HGB CONC 33.1 g/dL (32.0-36.0); MEAN CORPUSCULAR VOLUME 80 fl (80-97); MONOCYTES % (AUTO) 7.9 % (3-13); PLATELET COUNT 257 10^3/uL (150-450); RED BLOOD COUNT 4.75 10^6/uL (3.72-5.28); RED CELL DISTRIBUTION WIDTH 14.7 % (11.5-14.0); SEGMENTED NEUTROPHILS % (AUTO) 61.4 % (42-78); TOTAL CELLS COUNTED % (AUTO) 100 %; WHITE BLOOD COUNT 6.7 10^3/uL (4.0-10.5)
[2019-08-05 22:13] LABS: ALBUMIN 3.8 g/dL (3.5-5.0); ALKALINE PHOSPHATASE 97 U/L (38-126); ANION GAP 9 (5-19); ASPARTATE AMINO TRANSFERASE 34 U/L (14-36); BILIRUBIN,DIRECT 0.2 mg/dL (0.0-0.4); BILIRUBIN,TOTAL 0.5 mg/dL (0.2-1.3); BLOOD UREA NITROGEN 17 mg/dL (7-20); CALCIUM 9.4 mg/dL (8.4-10.2); CARBON DIOXIDE 27 mmol/L (22-30); CHLORIDE 103 mmol/L (98-107); GLUCOSE 114 mg/dL (75-110); TOTAL PROTEIN 6.6 g/dL (6.3-8.2)
[2019-08-05 22:42] LABS: APPEARANCE,URINE SLIGHTLY-CLOUDY; BILIRUBIN,URINE NEGATIVE (NEGATIVE); COLOR,URINE YELLOW; GLUCOSE, URINE NEGATIVE (NEGATIVE); KETONES,URINE NEGATIVE (NEGATIVE); LEUKOCYTE ESTERASE,URINE NEGATIVE (NEGATIVE); NITRITE,URINE NEGATIVE (NEGATIVE); PROTEIN,URINE NEGATIVE (NEGATIVE)
--- NOTE | 2019-08-05 23:50 | EKG REPORT ---
SEVERITY:- NORMAL ECG - SINUS RHYTHM : Confirmed by: Deo Monaco 05-Aug-2019 23:49:07
--- NOTE | 2019-08-06 00:13 | ER Document Report ---
ED General - General Chief Complaint: Chest Pain > 30 Stated Complaint: CHEST PAIN,ARM PAIN, SHORTNESS OF BREATH Time Seen by Provider: 08/05/19 19:56 Primary Care Provider: LEXA QUINTEROS MD [PEDIATRICS] - Follow up as needed Mode of Arrival: Ambulatory TRAVEL OUTSIDE OF THE [place] IN LAST 30 DAYS: No - HPI Notes: Patient is a 34-year-old female with a history of CVA, hypertension, who presents to the emergency department for evaluation of chest and shoulder pain, elevated blood pressure. She states her symptoms started yesterday. She was at rest. She really cannot describe the pain for me. It is in the right side of her chest with radiation into her right shoulder. She states the pain was constant, but has not had any chest pain since arrival. She really complains only of pain in her right shoulder and arm. She states the pain is worsened by movement, nothing seems to make it better. She feels slightly nauseated and occasionally short of breath with it. She states that last night she started noticing that her blood pressure was high. She was seeing numbers in the 180s over 1 teens. She states she believes her "blood pressure medicine is not working anymore." She denies any visual changes from her baseline. No difficu lty speaking or swallowing. She is moving her arms and legs without difficulty, with the exception of a course of her right arm that causes pain. Otherwise she is taking her medications as prescribed. Denies any changes in her medications recently. - Related Data Allergies/Adverse Reactions: lithium [[place]] Allergy (Intermediate, Verified 05/25/18 08:13) Hives Home Medications: gabapentin qday. hydrocodone prn pain. prozac. latuda,. atorvastatin. amlodipine Past Medical History - General Information source: Patient - Social History Smoking Status: Never Smoker Family History: Reviewed & Not Pertinent, Hypertension, Malignancy - Rectal cancer in father Patient has suicidal ideation: No Patient has homicidal ideation: No - Past Medical History Cardiac Medical History: Reports: Hx Hypertension Denies: Hx Coronary Artery Disease, Hx Heart Attack Pulmonary Medical History: Denies: Hx Asthma, Hx Bronchitis, Hx COPD, Hx Pneumonia Neurological Medical History: Reports: Hx Cerebrovascular Accident. 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 Denies: Hx Hysterectomy - Immunizations Hx Diphtheria, Pertussis, Tetanus Vaccination: Yes Hx Pneumococcal Vaccination: 05/05/18 Review of Systems - Review of Systems Constitutional: No symptoms reported EENT: No symptoms reported Cardiovascular: See HPI Respiratory: See HPI Gastrointestinal: See HPI Genitourinary: No symptoms reported Musculoskeletal: See HPI Skin: No symptoms reported Neurological/Psychological: No symptoms reported Physical Exam - Vital signs Vitals: Temp Pulse Resp BP Pulse Ox 98.2 F 84 16 154/98 H 97 08/05/19 19:43 08/05/19 19:43 08/05/19 19:43 08/05/19 19:43 08/05/19 19:43 - Notes Notes: Vital signs reviewed, please refer to chart. Head is normocephalic, atraumatic. Pupils equal round, reactive to light. Neck is supple without meningismus. Heart is regular rate and rhythm. Lungs are clear to auscultation bilaterally. Abdomen is soft, nontender, normoactive bowel sounds throughout. Extremities without cyanosis, clubbing. Posterior calves are nontender. Peripheral pulses are equal. Skin is warm and dry. Patient is awake, alert, neurological exam is nonfocal. Examination of the right chest wall and right upper extremity yields no obvious deformity. She is a well-healing scar on the volar forearm without signs of induration, dehiscence, or erythema. Active and passive range of motion of the right shoulder causes some discomfort. She is tender to palpation over the insertion of the pectoralis muscle and the anterior aspect of the deltoid. Negative drop arm, negative Jeanne's. Strength is plus 5 out of 5 at the shoulder, elbow, wrist, fingers, thumb. Radial pulse 2+. Capillary refill is brisk. Sensation is intact. Patient is awake, alert, oriented x3. Cranial nerves II - XII are grossly intact without focal neurological deficits. Strength is plus 5 out of 5 bilateral upper and lower extremities. Sensation is intact. Reflexes symmetrical. Intact [id number], rapid alternating movements, [id number]. Course - Re-evaluation Re-evalutation: 08/06/19 00:14 Patient presents to the emergency department for evaluation. On arrival here she had laboratory investigations, EKG ordered. Labs failed reveal any significant abnormality. Despite her reported elevated blood pressure, her blood pressure here is in the 120s and 130s at the time of my evaluation. She has no chest pain at this time. Her pain in her shoulder is reproducible. She had a negative stress test in April of this year. She is to continue her home medications. She understands if her symptoms worsen she needs to return. Otherwise, she is to follow-up with primary care in 1 to 2 days. - Vital Signs Vital signs: Temp Pulse Resp BP Pulse Ox 98.2 F 84 22 H 146/80 H 99 08/05/19 19:43 08/05/19 19:43 08/05/19 22:01 08/05/19 21:01 08/05/19 22:01 - Laboratory Result Diagrams: 08/05/19 21:34 08/05/19 21:34 Laboratory results interpreted by me: 08/05/19 08/05/19 08/05/19 20:30 21:34 21:34 MCH 26.5 L RDW 14.7 H Creatinine 0.50 L Glucose 114 H Urine Blood MODERATE H Urine Urobilinogen 2.0 H - Diagnostic Test Radiology reviewed: Reports reviewed Radiology results interpreted by me: 08/06/19 00:18 Chest X-Ray 08/05/19 19:59 IMPRESSION: No acute disease. copyright 2010 [employer]- All Rights Reserved - EKG Interpretation by Me Additional EKG results interpreted by me: 08/06/19 00:18 Sinus mechanism with rate of 83 bpm. Normal axis and intervals. No acute ST changes concerning for ischemia or infarction. Discharge - Discharge Clinical Impression: Chest wall pain Right shoulder pain Qualifiers: Chronicity: acute Qualified Code(s): M25.511 - Pain in right shoulder Hypertension Qualifiers: Hypertension type: essential hypertension Qualified Code(s): I10 - Essential (primary) hypertension Condition: Stable Disposition: HOME, SELF-CARE Instructions: Chest Pain of Unclear Cause ([facility]), Chest Wall Pain ([facility]), High Blood Pressure ([facility]) Additional Instructions: Please follow-up with your primary care provider this week. Continue your home medications as prescribed. You may need further testing as discussed. Return to the emergency department with worsening or new concerning symptoms of any sort. Referrals: LEXA QUINTEROS MD [PEDIATRICS] - Follow up as needed
[2019-08-06 00:27] VITALS: BP 132/82
== END 2019-08-06 00:35 | disposition home or self-care (01) ==
LOC: ER 19:26
DX: R07.89 Other chest pain (principal); M25.511 Pain in right shoulder; I10 Essential (primary) hypertension; R06.02 Shortness of breath; Z86.73 Personal history of transient ischemic attack (TIA), and cerebral infarction without residual deficits; Z79.899 Other long term (current) drug therapy
CPT/HCPCS: 36415; 71046; 80053; 81001; 84484; 84703; 85025; 93005; 93010; 99285

== ENCOUNTER 2019-08-17 18:54 | Emergency (ER) | payer MEDICAID ==
[2019-08-17 19:04] VITALS: BP 137/81
[2019-08-17] MEDS ORDERED: KETOROLAC TROMETHAMINE INJ/PF 30 MG/1 ML SDV IM ONE (20:32)
[2019-08-17] MEDS ORDERED: CYCLOBENZAPRINE HCL 10 MG TABLET PO ONE (20:32)
--- NOTE | 2019-08-17 20:34 | ER Document Report ---
ED Medical Screen (RME) - General Chief Complaint: Back Pain Stated Complaint: BACK PAIN, LEFT FLANK PAIN Time Seen by Provider: 08/17/19 20:24 Notes: Patient is a 34-year-old female who presents to the emergency department with a chief complaint of low back pain and lower abdominal pain. Patient reports around 3 PM developing mid to lower back pain. Patient denies injury. Patient denies radiation of pain into her legs. Patient denies urinary symptoms but does report bladder pressure. Patient reports she is also having abdominal pain in the left lower area as well as the right lower area. Patient reports when she attempts to press on this area this makes the back pain worse. Patient denies vaginal bleeding or discharge. Patient reports last menstrual cycle was August 05. TRAVEL OUTSIDE OF THE [place] IN LAST 30 DAYS: No - Related Data Allergies/Adverse Reactions: lithium [[place]] Allergy (Intermediate, Verified 05/25/18 08:13) Hives Home Medications: norco, horizant, fluoxetine, lamotrigine, latuda Past Medical History - Social History Chew tobacco use (# tins/day): No Frequency of alcohol use: None Drug Abuse: None - Past Medical History Cardiac Medical History: Reports: Hx Hypertension Denies: Hx Coronary Artery Disease, Hx Heart Attack Pulmonary Medical History: Denies: Hx Asthma, Hx Bronchitis, Hx COPD, Hx Pneumonia Neurological Medical History: Reports: Hx Cerebrovascular Accident. 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 Denies: Hx Hysterectomy - Immunizations Hx Diphtheria, Pertussis, Tetanus Vaccination: Yes Physical Exam - Vital signs Vitals: Temp Pulse Resp BP Pulse Ox 98.8 F 83 18 137/81 H 96 08/17/19 19:03 08/17/19 19:03 08/17/19 19:03 08/17/19 19:03 08/17/19 19:03 Course - Re-evaluation Re-evalutation: 08/17/19 20:33 We will initiate pain medication, urinalysis. Patient does need to be placed on a stretcher for full abdominal examination. Patient reports that she feels like if her back pain is controlled this will help with her abdominal pain. Will reevaluate. I have greeted and performed a rapid initial assessment of this patient. A comprehensive ED assessment and evaluation of the patient, analysis of test results and completion of the medical decision making process will be conducted by additional ED providers. - Vital Signs Vital signs: Temp Pulse Resp BP Pulse Ox 98.8 F 83 18 137/81 H 96 08/17/19 19:03 08/17/19 19:03 08/17/19 19:03 08/17/19 19:03 08/17/19 19:03
[2019-08-17 21:17] LABS: APPEARANCE,URINE SLIGHTLY-CLOUDY; BILIRUBIN,URINE NEGATIVE (NEGATIVE); COLOR,URINE YELLOW; GLUCOSE, URINE NEGATIVE (NEGATIVE); KETONES,URINE NEGATIVE (NEGATIVE); LEUKOCYTE ESTERASE,URINE MODERATE (NEGATIVE); NITRITE,URINE NEGATIVE (NEGATIVE); PROTEIN,URINE 30 mg/dL (NEGATIVE); URINE SPECIFIC GRAVITY 1.024
--- NOTE | 2019-08-17 22:36 | ER Document Report ---
ED General - General Chief Complaint: Back Pain Stated Complaint: BACK PAIN, LEFT FLANK PAIN Time Seen by Provider: 08/17/19 20:24 Notes: CHIEF COMPLAINT: Low back and pelvic pain tonight HPI: 34-year-old female presenting to the emergency department complaining of mid lower back pain that began this afternoon. Patient states the pain seems to also radiate around as a pressure sensation into the lower pelvis. No dysuria. No vaginal discharge or bleeding. Last menstrual cycle was beginning of August. It was a normal cycle. No history of ovarian cysts. Denies an actual trauma to the low back. She did take [place] at home without resolution of her pain. No fever. Patient denies unilateral symptoms ROS: See HPI - all other systems were reviewed and are otherwise negative Constitutional: no fever or recent illness Eyes: no drainag ENT: no runny nose, no sore throat Cardiovascular: no chest pain Resp: no SOB, no cough GI: no vomiting, no diarrhea : no dysuria, no vaginal discharge, positive pelvic pain Integumentary: no rash Allergy: no hives Musculoskeletal: no extremity pain or swelling, positive back pain Neurological: no numbness/tingling, no weakness MEDICATIONS: I agree with the patient medications as charted by the RN. ALLERGIES: I agree with the allergies as charted by the RN. PAST MEDICAL HISTORY/PAST SURGICAL HISTORY: Reviewed and agree as charted by RN. SOCIAL HISTORY: Reviewed and agree as charted by RN. FAMILY HISTORY: No significant familial comorbid conditions directly related to patient complaint EXAM: Reviewed vital signs as charted by RN. CONSTITUTIONAL: Alert and oriented and responds appropriately to questions. Well-appearing; well-nourished, mild distress secondary to pain HEAD: Normocephalic; atraumatic EYES: Conjunctivae clear, sclerae non-icteric ENT: normal nose; no rhinorrhea; moist mucous membranes; pharynx without lesions noted NECK: Supple without meningismus; non-tender; no cervical lymphadenopathy, no masses CARD: RRR; no murmurs, no clicks, no rubs, no gallops; symmetric distal pulses RESP: Normal chest excursion without splinting or tachypnea; breath sounds clear and equal bilaterally; no wheezes, no rhonchi, no rales, ABD/GI: Morbidly obese, normal bowel sounds; non-distended; soft, mild tenderness across the pelvis bilaterally and over the suprapubic on palpation, no rebound, no guarding; no palpable organomegaly or masses : 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 External genitalia normal. No skin lesions noted. Pelvic Exam: No active bleeding. No purulent discharge. Cervix appears normal. No CMT. No lesions or masses. Uterus normal size and non tender. Right/Left adnexa normal size and mildly tender bilaterally. Difficult exam secondary to patient body habitus BACK: The back appears normal and is mildly tender to palpation in the lower lumbar region and lumbar paraspinous musculature, there is no CVA tenderness EXT: Normal ROM in all joints; non-tender to palpation; no cyanosis, no effusions, no edema SKIN: Normal color for age and race; warm; dry; good turgor; no acute lesions noted NEURO: Moves all extremities equally; Motor and sensory function intact PSYCH: The patient's mood and manner are appropriate. Grooming and personal hygiene are appropriate. MDM: 34-year-old female with low back pain in the central low back with pressure across the pelvis bilaterally. Mild bilateral adnexal tenderness on bimanual exam, urine does not show evidence of infection. Awaiting ultrasound report to evaluate for possible ovarian cyst, fibroid or other pelvic causation for discomfort TRAVEL OUTSIDE OF THE [place] IN LAST 30 DAYS: No - Related Data Allergies/Adverse Reactions: lithium [[place]] Allergy (Intermediate, Verified 05/25/18 08:13) Hives Home Medications: norco, horizant, fluoxetine, lamotrigine, latuda Past Medical History - Social History Smoking Status: Never Smoker Chew tobacco use (# tins/day): No Frequency of alcohol use: None Drug Abuse: None Family History: Reviewed & Not Pertinent, Hypertension, Malignancy - Rectal cancer in father Patient has suicidal ideation: No Patient has homicidal ideation: No - Past Medical History Cardiac Medical History: Reports: Hx Hypertension Denies: Hx Coronary Artery Disease, Hx Heart Attack Pulmonary Medical History: Denies: Hx Asthma, Hx Bronchitis, Hx COPD, Hx Pneumonia Neurological Medical History: Reports: Hx Cerebrovascular Accident. 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 Denies: Hx Hysterectomy - Immunizations Hx Diphtheria, Pertussis, Tetanus Vaccination: Yes Hx Pneumococcal Vaccination: 05/05/18 Physical Exam - Vital signs Vitals: Temp Pulse Resp BP Pulse Ox 98.8 F 83 18 137/81 H 96 08/17/19 19:03 08/17/19 19:03 08/17/19 19:03 08/17/19 19:03 08/17/19 19:03 Course - Re-evaluation Re-evalutation: 08/18/19 00:05 US does not show acute findings. low suspicion for PID. will treat as musculoskeletal pain at this time, follow up PCP - Vital Signs Vital signs: Temp Pulse Resp BP Pulse Ox 98.8 F 83 18 137/81 H 96 08/17/19 19:03 08/17/19 19:03 08/17/19 19:03 08/17/19 19:03 08/17/19 19:03 - Laboratory Laboratory results interpreted by me: 08/17/19 20:38 Urine Protein 30 H Urine Blood SMALL H Urine Urobilinogen 2.0 H Ur Leukocyte Esterase MODERATE H Discharge - Discharge Clinical Impression: Acute pelvic pain, female Low back pain Qualifiers: Chronicity: acute Back pain laterality: midline Sciatica presence: without sciatica Qualified Code(s): M54.5 - Low back pain Condition: Stable Disposition: HOME, SELF-CARE Additional Instructions: Medications as prescribed no driving if taking muscle relaxers. Follow-up closely with orthopedics for further evaluation and treatment call for appointment. Ultrasound did not show acute findings in the pelvis to explain the back discomfort. Urine did not show evidence of infection today. If you develop fever greater than 101 or worsening pain return for reevaluation Prescriptions: Diazepam [Valium 5 mg Tablet] 5 mg PO TID PRN #15 tablet PRN Reason: Diclofenac Sodium [Voltaren 50 Mg Tablet.] 50 mg PO BID #20 tablet. Referrals: MONICA DUMONT MD [ACTIVE PROVISIONAL STAFF] - Follow up as needed
[2019-08-17 23:52] LABS: T.VAGINALIS (WET MOUNT) NO TRICHOMONAS SEEN; WBCS (WET MOUNT) RARE WBCS SEEN; YEAST (WET MOUNT) NO YEAST SEEN
--- NOTE | 2019-08-17 23:58 | RADIOLOGY REPORT (SQ) ---
EXAM DESCRIPTION: US PELVIS TRANSVAGINAL COMPLETED DATE/TME: 08/17/2019 22:37 CLINICAL HISTORY: 34 years Female, left pelvic pain Comparison: None. Technique: Transvaginal. LIMITATIONS: None. FINDINGS: 11 cm uterus with possible subcentimeter mixed echogenic submucosal anterior uterine wall fibroid,, 1.2-cm endometrial stripe thickness, trace cervical canal fluid, nonvisualized right ovary, and 3.0-cm left ovary appear otherwise unremarkable in size, shape, echotexture, and vascularity. No free fluid. IMPRESSION: No acute findings.
[2019-08-18 01:14] LABS: CHLAM PCR NOT DETECTED (NOT DETECT)
== END 2019-08-18 01:15 | disposition home or self-care (01) ==
LOC: ER 18:54
DX: M54.5 Low back pain (principal); R10.2 Pelvic and perineal pain; I10 Essential (primary) hypertension; F31.9 Bipolar disorder, unspecified; Z79.899 Other long term (current) drug therapy; Z88.8 Allergy status to other drugs, medicaments and biological substances
CPT/HCPCS: 99284; 96374; 87210; 81025; 81001; 87491; 87591; 76830; 93976; J3490; J1885

== ENCOUNTER 2020-02-25 21:36 | Emergency (ER) | payer MEDICAID ==
--- NOTE | 2020-02-25 22:54 | ER Document Report ---
ED Medical Screen (RME) - General Chief Complaint: Sore Throat Stated Complaint: NAUSEA/EYE PROBLEM Notes: 34-year-old female presenting today with sore throat and injected red right. 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 She says she has had discharge from the eye. No eye pain. No vision changes. Wears contacts. Woke up again and noticed she had a sore throat. Hasn't been able to eat or drink anything. Has not taken anything for her symptoms. Had a cough earlier, no complaints of cough now. Has mild abdominal pain. Temperature at home was 101. Works at [employer]. PE: No acute distress. Right eye is red, no discharge. Orophanynx is unremarkable. Lungs are CTABL. Heart is RRR no murmurs, rubs or gallops. I have greeted and performed a rapid initial assessment of this patient. A comprehesive ED assessment and evaluation of this patient, analysis of test results and completion of the medical decision-making process will be conducted by additional ED providers. TRAVEL OUTSIDE OF THE [place] IN LAST 30 DAYS: No - Related Data Allergies/Adverse Reactions: lithium [[place]] Allergy (Intermediate, Verified 02/25/20 22:32) Hives Penicillins Allergy (Verified 02/25/20 22:32) Past Medical History - Social History Frequency of alcohol use: Rare Drug Abuse: None - Past Medical History Cardiac Medical History: Reports: Hx Hypertension Denies: Hx Coronary Artery Disease, Hx Heart Attack Pulmonary Medical History: Denies: Hx Asthma, Hx Bronchitis, Hx COPD, Hx Pneumonia Neurological Medical History: Reports: Hx Cerebrovascular Accident. 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 Denies: Hx Hysterectomy - Immunizations Hx Diphtheria, Pertussis, Tetanus Vaccination: Yes Physical Exam - Vital signs Vitals: Temp Pulse Resp BP Pulse Ox 98.6 F 69 22 H 162/85 H 98 02/25/20 22:32 02/25/20 22:32 02/25/20 22:32 02/25/20 22:32 02/25/20 22:32 Course - Vital Signs Vital signs: Temp Pulse Resp BP Pulse Ox 98.6 F 69 22 H 162/85 H 98 02/25/20 22:32 02/25/20 22:32 02/25/20 22:32 02/25/20 22:32 02/25/20 22:32
--- NOTE | 2020-02-25 23:55 | ER Document Report ---
ED General - General Chief Complaint: Sore Throat Stated Complaint: NAUSEA/EYE PROBLEM Time Seen by Provider: 02/25/20 23:55 TRAVEL OUTSIDE OF THE [place] IN LAST 30 DAYS: No - HPI Notes: 34-year-old female presents with sore throat and right eye redness. Patient reports onset of her symptoms today. She woke up around noon and saw that her right eye was red, additionally states that it was crusted shut. She wears contacts but has not applied a lens today. No known eye trauma. She then awoke around 5 PM today and had a sore throat and "felt like crap". She reports a history of repeated strep throat, states that she usually gets it once a year in the fall, this is been occurring since the of her second child. She had a fever of 101.1 at 8 PM today - Related Data Allergies/Adverse Reactions: lithium [[place]] Allergy (Intermediate, Verified 02/25/20 22:32) Hives Penicillins Allergy (Verified 02/25/20 22:32) Past Medical History - General Information source: Patient - Social History Smoking Status: Never Smoker Frequency of alcohol use: Rare Drug Abuse: None Family History: Hypertension, Malignancy - Rectal cancer in father Patient has homicidal ideation: No - Past Medical History Cardiac Medical History: Reports: Hx Hypertension Denies: Hx Coronary Artery Disease, Hx Heart Attack Pulmonary Medical History: Denies: Hx Asthma, Hx Bronchitis, Hx COPD, Hx Pneumonia Neurological Medical History: Reports: Hx Cerebrovascular Accident. 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 Denies: Hx Hysterectomy - Immunizations Hx Diphtheria, Pertussis, Tetanus Vaccination: Yes Hx Pneumococcal Vaccination: 05/05/18 Review of Systems - Review of Systems Constitutional: Fever EENT: Eye discharge, Throat pain. denies: Difficulty swallowing Cardiovascular: denies: Chest pain Respiratory: denies: Cough Gastrointestinal: denies: Nausea, Vomiting Female Genitourinary: No symptoms reported Musculoskeletal: No symptoms reported Skin: No symptoms reported Hematologic/Lymphatic: No symptoms reported Neurological/Psychological: No symptoms reported Physical Exam - Vital signs Vitals: Temp Pulse Resp BP Pulse Ox 98.6 F 69 22 H 162/85 H 98 02/25/20 22:32 02/25/20 22:32 02/25/20 22:32 02/25/20 22:32 02/25/20 22:32 - General General appearance: Appears well In distress: None - HEENT Head: Normocephalic, Atraumatic Conjunctiva: Injected Extraocular movements intact: Yes Pupils: PERRL Mucous membranes: Moist Pharynx: Erythema. No: Uvular edema Neck: Anterior cervical chain - Respiratory Breath sounds: Normal - Cardiovascular Rhythm: Regular Heart sounds: Normal auscultation - Abdominal Inspection: Obese Tenderness: Nontender - Extremities General upper extremity: Normal inspection General lower extremity: Normal inspection - Neurological Neuro grossly intact: Yes Cognition: Normal Orientation: AAOx4 - Psychological Associated symptoms: Normal affect - Skin Skin Temperature: Warm Course - Re-evaluation Re-evalutation: 34-year-old female with sore throat and right eye redness. Clinically on exam she has evidence of acute conjunctivitis, she has injected sclera, some purulent drainage. Vision is intact, pupils round and reactive. No pain in the eye. Additionally complains of sore throat, apparently has episodes of repeated strep infections. She does have some erythema on exam, currently no signs to suggest MANAGER ACCOUNT MANAGEMENT. She obtained a rapid strep swab from triage which is positive. I discussed the results with her. She reports an allergy to penicillin, I discussed with her can use Keflex for strep treatment, I discussed with her signs of allergic reaction and to return to the emergency department if she feels like she is suffering 1. I prescribed Polytrim eyedrops for the conjunctivitis. Return precautions were given, stable at time of discharge. - Vital Signs Vital signs: Temp Pulse Resp BP Pulse Ox 97.6 F 75 14 129/78 H 97 02/26/20 00:23 02/26/20 00:23 02/26/20 00:23 02/26/20 00:23 02/26/20 00:23 Discharge - Discharge Clinical Impression: Streptococcal pharyngitis Conjunctivitis Qualifiers: Conjunctivitis type: acute Acute conjunctivitis type: bacterial Laterality: right Qualified Code(s): H10.31 - Unspecified acute conjunctivitis, right eye Condition: Stable Disposition: HOME, SELF-CARE Instructions: Strep Throat ([facility]) Additional Instructions: Please begin course of Keflex for strep throat. If you develop any signs of allergic reaction, please return to the emergency department. Use eyedrops for pinkeye. He may continue Tylenol Motrin for pain. Please have close follow-up with your primary care doctor. Return to the ED for any concerning or worsening symptoms. Prescriptions: Cephalexin Monohydrate [Keflex 500 mg Capsule] 500 mg PO BID 7 Days #14 capsule Polymyxin B Sulf/Trimethoprim [Polytrim Eye Drops] 1 drop OD QID 5 Days #10 ml Forms: Return to Work
[2020-02-26] MEDS ORDERED: CEPHALEXIN 500 MG CAPSULE PO ONE (00:13)
[2020-02-26] MEDS ORDERED: IBUPROFEN 600 MG TABLET PO ONE (00:13)
[2020-02-26 00:24] VITALS: BP 129/78
== END 2020-02-26 00:24 | disposition home or self-care (01) ==
LOC: ER 21:36
DX: J02.0 Streptococcal pharyngitis (principal); H10.31 Unspecified acute conjunctivitis, right eye; H57.11 Ocular pain, right eye; R11.0 Nausea; R50.9 Fever, unspecified; Z88.0 Allergy status to penicillin; Z88.8 Allergy status to other drugs, medicaments and biological substances; I10 Essential (primary) hypertension
CPT/HCPCS: 99283; 87880; J3490

== ENCOUNTER 2020-03-01 08:15 | Emergency (ER) | payer MEDICAID ==
[2020-03-01] MEDS ORDERED: TETRACAINE HCL 0.5% OPH SOLN 4 ML ONE (11:04)
[2020-03-01] MEDS ORDERED: TETRACAINE HCL 0.5% OPH SOLN 4 ML OU ONE (11:04)
[2020-03-01] MEDS ORDERED: TETRACAINE HCL/PF 20MG/2ML AMPULE (SPINAL) INJ ONE (11:21)
[2020-03-01] MEDS ORDERED: TETRACAINE HCL 0.5% OPH SOLN 4 ML OD ONE (11:21)
--- NOTE | 2020-03-01 11:41 | ER Document Report ---
ED General - General Chief Complaint: Loss of Vision Stated Complaint: EYE PROBLEM Time Seen by Provider: 03/01/20 10:28 TRAVEL OUTSIDE OF THE [place]. IN LAST 30 DAYS: No - HPI Notes: Chief complaint: Visual loss right eye History of present illness: 35-year-old female was seen here 5 days ago by another provider for strep pharyngitis and bilateral conjunctivitis. She was treated with oral Keflex and also with Polytrim drops. Patient wears contact lenses but says she has discontinued use of these because the irritation of her eyes. She comes back in now reporting progressive deterioration of vision in right eye since yesterday with mild aching of the eye. Her pharyngitis symptoms are improved. She denies fever. She denies any injury to the eye. - Related Data Allergies/Adverse Reactions: lithium [[place]] Allergy (Intermediate, Verified 02/25/20 22:32) Hives Penicillins Allergy (Verified 02/25/20 22:32) Home Medications: prozac, hydrocodone, horizant Past Medical History - General Information source: Patient, [facility] Records - Social History Smoking Status: Never Smoker Chew tobacco use (# tins/day): No Frequency of alcohol use: None Drug Abuse: None Family History: Hypertension, Malignancy - Rectal cancer in father - Past Medical History Cardiac Medical History: Reports: Hx Hypertension Denies: Hx Coronary Artery Disease, Hx Heart Attack Pulmonary Medical History: Denies: Hx Asthma, Hx Bronchitis, Hx COPD, Hx Pneumonia Neurological Medical History: Reports: Hx Cerebrovascular Accident. 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 Denies: Hx Hysterectomy - Immunizations Hx Diphtheria, Pertussis, Tetanus Vaccination: Yes Hx Pneumococcal Vaccination: 05/05/18 Review of Systems - Review of Systems Notes: Constitutional: Negative for fever. HENT: As per HPI. Eyes: As per HPI. Cardiovascular: Negative for chest pain. Respiratory: Negative for shortness of breath. Gastrointestinal: Negative for abdominal pain, vomiting or diarrhea. Genitourinary: Negative for dysuria. Musculoskeletal: Negative for back pain. Skin: Negative for rash. Neurological: Negative for headaches, weakness or numbness. 10 point ROS negative except as marked above and in HPI. Physical Exam - Vital signs Vitals: Temp Pulse Resp BP Pulse Ox 98.9 F 68 16 120/80 99 03/01/20 08:32 03/01/20 08:32 03/01/20 08:32 03/01/20 08:32 03/01/20 08:32 - Notes Notes: GENERAL: Mildly obese middle-aged female with very flat affect. SKIN: Good turgor no rashes. HEAD: Normocephalic atraumatic. EYES: PERRLA. EOMI. mild conjunctival injection on the right. No discharge. Patient is able to recognize my fingers with the right eye but is not able to count them accurately. Visual acuity with corrective lenses using Snellen chart: Unable right eye, 20/20 left eye, 20/50 both eyes. EARS: CANALS AND TMS CLEAR. NOSE: CLEAR. MOUTH: Moist mucosa. Good dentition. No stridor or edema. No drooling. NECK: Supple. No masses or thyromegaly. No adenopathy. Carotids 2+ without bruits. No JVD. BACK: Symmetrical without tenderness. CHEST: Respirations unlabored. Breath sounds clear and symmetrical. HEART: Regular rhythm. No murmur gallop or rub. ABDOMEN: Soft nontender without masses, organomegaly or rebound. Bowel sounds normally active. No bruits. GENITALIA: Deferred. EXTREMITIES: Large healed surgical scar extending longitudinally over to the volar aspect of the right forearm. No edema. No calf tenderness. Cap refill less than 1.5 seconds. Dorsalis pedis and posterior tibial pulses 3+ and symmetrical. NEUROLOGICAL: GCS 15. Alert and oriented x3. Normal gait. Fluent speech. Cranial nerves II through XII intact. Sensorimotor and cerebellar normal. Normal tone. PSYCHIATRIC: Flat affect. - HEENT Visual acuity- Left eye: 20/30 Visual acuity- Both eyes: 20/50 Corrective lenses worn: Yes - patient is unable to see from the right eye Course - Re-evaluation Re-evalutation: 03/01/20 16:28 MRI showed some nonspecific abnormalities not clearly diagnostic of optic neuritis. We do not have an grinder machine setter or neurologist on staff here today. I spoke with Dr. Drea Thompson the grinder machine setter on-call at [facility]. Dr. Thompson requests that we discharge patient from the emergency department and sent her directly to her office at [facility], [place] located at [address] and she will provide further evaluation of the patient this afternoon. Findings, clinical impression and plan of treatment have been discussed with patient/family. Understanding of current findings and recommendations has been acknowledged by them and there is agreement regarding disposition and follow-up. - Vital Signs Vital signs: Temp Pulse Resp BP Pulse Ox 98.9 F 68 16 120/80 99 03/01/20 09:32 03/01/20 08:32 03/01/20 08:32 03/01/20 08:32 03/01/20 08:32 - Laboratory Result Diagrams: 03/01/20 11:57 03/01/20 11:57 Laboratory results interpreted by me: 03/01/20 03/01/20 11:57 11:57 MCV 79 L RDW 15.2 H ALT 64 H Discharge - Discharge Clinical Impression: Visual loss right eye Condition: Stable Disposition: HOME, SELF-CARE Additional Instructions: Dr. Thompson (ophthalmology) will see you her office at [facility], [place] located at [address] and she will provide further evaluation of the patient this afternoon. . Go to the office now.
[2020-03-01 12:39] LABS: ABSOLUTE EOSINOPHILS # (AUTO) 0.3 10^3/uL (0.0-0.6); ABSOLUTE LYMPHOCYTES (AUTO) 1.9 10^3/uL (0.5-4.7); ABSOLUTE MONOCYTES (AUTO) 0.8 10^3/uL (0.1-1.4); ABSOLUTE NEUT (AUTO) 5.1 10^3/uL (1.7-8.2); BASOPHILS % (AUTO) 0.2 % (0-2); EOSINOPHILS % (AUTO) 3.5 % (0-6); HEMATOCRIT 39.2 % (36.0-47.0); HEMOGLOBIN 13.4 g/dL (12.0-15.5); LYMPHOCYTES % (AUTO) 23.9 % (13-45); MEAN CORPUSCULAR HEMOGLOBIN 27.1 pg (27.0-33.4); MEAN CORPUSCULAR HGB CONC 34.1 g/dL (32.0-36.0); MEAN CORPUSCULAR VOLUME 79 fl (80-97); MONOCYTES % (AUTO) 9.4 % (3-13); PLATELET COUNT 233 10^3/uL (150-450); RED BLOOD COUNT 4.94 10^6/uL (3.72-5.28); RED CELL DISTRIBUTION WIDTH 15.2 % (11.5-14.0); TOTAL CELLS COUNTED % (AUTO) 100 %
[2020-03-01 12:45] LABS: INTERNATIONAL RATION (INR) 0.95; PROTHROMBIN TIME 12.9 SEC (11.4-15.4)
[2020-03-01 12:55] LABS: ALBUMIN 4.4 g/dL (3.5-5.0); ALKALINE PHOSPHATASE 90 U/L (38-126); ANION GAP 9 (5-19); ASPARTATE AMINO TRANSFERASE 34 U/L (14-36); BILIRUBIN,DIRECT 0.2 mg/dL (0.0-0.4); BILIRUBIN,TOTAL 0.7 mg/dL (0.2-1.3); BLOOD UREA NITROGEN 17 mg/dL (7-20); CALCIUM 9.6 mg/dL (8.4-10.2); CARBON DIOXIDE 22 mmol/L (22-30); CHLORIDE 107 mmol/L (98-107); GLUCOSE 86 mg/dL (75-110); POTASSIUM 4.2 mmol/L (3.6-5.0); TOTAL PROTEIN 7.1 g/dL (6.3-8.2)
[2020-03-01 13:19] LABS: ERYTHROCYTE SEDIMENTATION RATE 19 mm/hr (0-20)
--- NOTE | 2020-03-01 15:43 | RADIOLOGY REPORT (SQ) ---
EXAM DESCRIPTION: MRI HEAD COMBO IMAGES COMPLETED DATE/TIME: 03/01/2020 3:13 pm REASON FOR STUDY: monocular visual loss COMPARISON: CT angio [place] of [place] 07/29/2008 TECHNIQUE: Multiplanar imaging includes noncontrasted T1, T2, FLAIR, diffusion with ADC map and post gadolinium contrast T1 sequences. Additional section axial fat-sat T2 weighted images, coronal fat-sat T2 weighted images through the o rbits. Additional axial and coronal pre and postcontrast T1 weighted images through the orbits. Images stored on PACS. CONTRAST TYPE AND DOSE: 20 mL Prohance. RENAL FUNCTION: Not indicated. ACR Type II contrast agent associated with few, if any, unconfounded cases of NSF LIMITATIONS: None. FINDINGS: ANATOMY: Right-sided persistent trigeminal artery, an anatomic variant. Benign left occip ital venous angioma, anatomic variant. CSF SPACES: Normal in size and contour. No hemorrhage. CEREBRUM: Diffusion-weighted images are negative for acute ischemic change. No MR evidence of acute intracranial hemorrhage, mass effect, or midline shift. FLAIR image 16 demonstrates a punctate focus of signal in left frontal subcortical white matter likel y gliosis along the prevascular space. POSTERIOR FOSSA: Old infarct inferior left cerebellar hemisphere, unchanged from CT angio brain 2018. No hemorrhage. No edema, masses, or mass effect. Internal auditory canals, cerebellopontine angles, m astoids normal. No enhancing lesions. No abnormal enhancement post contrast. DIFFUSION IMAGING: Negative for acute or subacute infarction. ORBITS: No masses. Globes normal. Ectasia bilateral optic nerve sleeves axial thin-section orbits T2 image 02/16, correlate clinically for pseudotumor cerebri. PARANASAL SINUSES: No fluid levels. Mucosa normal. OTHER: Findings discussed with Dr. Lopez IMPRESSION: No acute infarct. 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 EVIDENCE OF ACUTE STROKE: NO. TECHNICAL DOCUMENTATION: JOB ID: [id number] 2010 [employer]- All Rights Reserved Reading location - IP/workstation name: [id number]
[2020-03-01 17:41] VITALS: BP 142/89
== END 2020-03-01 16:30 | disposition home or self-care (01) ==
LOC: ER 08:15
DX: H54.61 Unqualified visual loss, right eye, normal vision left eye (principal); I10 Essential (primary) hypertension; F32.9 Major depressive disorder, single episode, unspecified; Z79.899 Other long term (current) drug therapy; Z79.891 Long term (current) use of opiate analgesic; Z86.73 Personal history of transient ischemic attack (TIA), and cerebral infarction without residual deficits; Z88.8 Allergy status to other drugs, medicaments and biological substances; Z88.0 Allergy status to penicillin
CPT/HCPCS: 99285; 36415; 85025; 85652; 85610; 85730; 80053; 70553; A9576; J3490

== ENCOUNTER → 2020-04-04 | Outpatient (CLI) | payer MEDICAID ==
[2020-04-04 11:12] LABS: ALBUMIN 4.4 g/dL (3.5-5.0); ALKALINE PHOSPHATASE 124 U/L (38-126); ANION GAP 11 (5-19); ASPARTATE AMINO TRANSFERASE 30 U/L (14-36); BILIRUBIN,DIRECT 0.3 mg/dL (0.0-0.4); BILIRUBIN,TOTAL 0.5 mg/dL (0.2-1.3); BLOOD UREA NITROGEN 22 mg/dL (7-20); CALCIUM 9.8 mg/dL (8.4-10.2); CARBON DIOXIDE 25 mmol/L (22-30); CHLORIDE 105 mmol/L (98-107); GLUCOSE 101 mg/dL (75-110); POTASSIUM 4.3 mmol/L (3.6-5.0); TOTAL PROTEIN 6.9 g/dL (6.3-8.2)
== END ==
LOC: OD 09:15
PROVIDERS: ATTEND Ophthalmology
DX: H53.10 Unspecified subjective visual disturbances (principal)
CPT/HCPCS: 36415; 80053; 82164; 83090; 85652; 86038; 86480; 86780

== ENCOUNTER 2020-06-30 22:49 | Emergency (ER) | payer MEDICAID ==
[2020-07-01] MEDS ORDERED: ACETAMINOPHEN 325 MG TABLET PO ONE (00:10)
--- NOTE | 2020-07-01 00:17 | ER Document Report ---
ED Medical Screen (RME) - General Chief Complaint: Neck Injury Stated Complaint: FALL/NECK PAIN Time Seen by Provider: 07/01/20 00:06 Primary Care Provider: JESSICA SMITH MD [Primary Care Provider] - Follow up as needed Mode of Arrival: Ambulatory Information source: Patient Notes: HPI; 35-year-old female presents to the emergency room complaining of neck and upper back pain well as left ankle pain. Patient states she was getting out of the shower when her towel rack fell hitting her between her shoulder blades, her neck. States she fell backwards on her buttocks and twisted her left ankle. Denies hitting her head or passing out. Did not take any medications prior to arrival. PE: Alert and oriented x3. PERRLA, EOMI. Lungs: Clear to auscultation without r ales, rhonchi, wheezes. Heart: Tachycardic without murmurs, rubs, gallops. Nontender to palpation over the cervical spine. There is tenderness to the thoracic spine from T4-T6. There is painful range of motion with lateral movement to the neck. Tenderness over the bilateral trapezius muscles. Tenderness over the left lateral malleus with painful range of motion. Patient is ambulatory with a steady gait. She is neurovascularly intact. I have greeted and performed a rapid initial assessment of this patient. A comprehensive ED assessment and evaluation of the patient, analysis of test r esults and completion of the medical decision making process will be conducted by additional ED providers. I have specifically instructed the patient or family members with the patient to immediately return to any nursing staff should anything change in the patient's condition or with their chief complaint. TRAVEL OUTSIDE OF THE [place] IN LAST 30 DAYS: No - Related Data Allergies/Adverse Reactions: lithium [[place]] Allergy (Intermediate, Verified 02/25/20 22:32) Hives Penicillins Allergy (Verified 02/25/20 22:32) Past Medical History - Past Medical History Cardiac Medical History: Reports: Hx Hypertension Denies: Hx Coronary Artery Disease, Hx Heart Attack Pulmonary Medical History: Denies: Hx Asthma, Hx Bronchitis, Hx COPD, Hx Pneumonia Neurological Medical History: Reports: Hx Cerebrovascular Accident. 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 Denies: Hx Hysterectomy - Immunizations Hx Diphtheria, Pertussis, Tetanus Vaccination: Yes Physical Exam - Vital signs Vitals: Temp Pulse Resp BP Pulse Ox 98.3 F 110 H 18 170/97 H 99 06/30/20 22:57 06/30/20 22:57 06/30/20 22:57 06/30/20 22:57 06/30/20 22:57 Course - Vital Signs Vital signs: Temp Pulse Resp BP Pulse Ox 98.3 F 110 H 18 170/97 H 99 06/30/20 22:57 06/30/20 22:57 06/30/20 22:57 06/30/20 22:57 06/30/20 22:57 Doctor's Discharge - Discharge Referrals: JESSICA SMITH MD [Primary Care Provider] - Follow up as needed
--- NOTE | 2020-07-01 01:01 | RADIOLOGY REPORT (SQ) ---
EXAM DESCRIPTION: XR THORACIC SPINE 2 VIEWS COMPLETED DATE/TME: 07/01/2020 00:36 CLINICAL HISTORY: 35 years, Female, injury COMPARISON: None. NUMBER OF VIEWS: 2 TECHNIQUE: 2 view thoracic spine LIMITATIONS: None. FINDINGS: Vertebral body height and alignment is preserved. Minor endplate degenerative changes of the mid thoracic spine. IMPRESSION: No acute osseous abnormality of the thoracic spine copyright 2010 [employer]- All Rights Reserved
--- NOTE | 2020-07-01 01:04 | RADIOLOGY REPORT (SQ) ---
EXAM DESCRIPTION: XR CERVICAL SPINE 4-5 VIEWS COMPLETED DATE/TME: 07/01/2020 00:36 CLINICAL HISTORY: 35 years, Female, injury COMPARISON: None. NUMBER OF VIEWS: 5 TECHNIQUE: 5 view cervical spine LIMITATIONS: . None FINDINGS: C6 and below are not clearly seen on the lateral view, due to patient body habitus.. As visualized vertebral body height and alignment is preserved. The disc spaces appear maintained. Odontoid views are unremarkable. Prevertebral soft tissues are grossly normal IMPRESSION: No radiographic evidence for acute C-spine abnormality copyright 2010 [employer]- All Rights Reserved
--- NOTE | 2020-07-01 01:06 | RADIOLOGY REPORT (SQ) ---
EXAM DESCRIPTION: ANKLE LEFT COMPLETE, three views CLINICAL HISTORY: 35 years Female, injury COMPARISON: None. FINDINGS: Diffuse soft tissue swelling is identified. The ankle mortise is intact. Bone mineralization is normal. No erosions or periostitis. There is minimal spurring of the calcaneus at the insertion of the plantar fascia. IMPRESSION: Diffuse soft tissue swelling. No fracture.
--- NOTE | 2020-07-01 02:00 | ER Document Report ---
ED General - General Chief Complaint: Neck Injury Stated Complaint: FALL/NECK PAIN Time Seen by Provider: 07/01/20 00:06 Primary Care Provider: JESSICA SMITH MD [Primary Care Provider] - Follow up as needed Mode of Arrival: Ambulatory Notes: Patient presents to the ER for evaluation of neck pain with left ankle pain following a fall while getting out of the shower. The patient states her feet slipped causing her to strike the towel ram next to the shower. She denies positive loss of consciousness. The patient states she is ambulatory but that it caused increased pain in the left ankle. She denies headache. She denies nausea or vomiting. The patient states she does have a history of hypertension and has been struggling to control it with her routine medications. She denies chest pain or shortness of breath. Nursing notes reviewed and past medical, social, and family histories reviewed and validated. TRAVEL OUTSIDE OF THE [place] IN LAST 30 DAYS: No - Related Data Allergies/Adverse Reactions: lithium [[place]] Allergy (Intermediate, Verified 02/25/20 22:32) Hives Penicillins Allergy (Verified 02/25/20 22:32) Past Medical History - General Information source: Patient - Social History Smoking Status: Never Smoker Chew tobacco use (# tins/day): No Frequency of alcohol use: None Drug Abuse: None Lives with: Family Family History: Hypertension, Malignancy - Rectal cancer in father Patient has suicidal ideation: No Patient has homicidal ideation: No - Past Medical History Cardiac Medical History: Reports: Hx Hypertension Denies: Hx Coronary Artery Disease, Hx Heart Attack Pulmonary Medical History: Denies: Hx Asthma, Hx Bronchitis, Hx COPD, Hx Pneumonia EENT Medical History: Reports: None Neurological Medical History: Reports: Hx Cerebrovascular Accident. Denies: Hx Seizures Endocrine Medical History: Reports: None Renal/ Medical History: Reports: None. 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 Denies: Hx Hysterectomy - Immunizations Immunizations up to date: Yes Hx Diphtheria, Pertussis, Tetanus Vaccination: Yes Hx Pneumococcal Vaccination: 05/05/18 Review of Systems - Review of Systems Notes: Constitutional: Negative for fever. HENT: Negative for sore throat. Eyes: Negative for visual changes. Cardiovascular: Negative for chest pain. Respiratory: Negative for shortness of breath. Gastrointestinal: Negative for abdominal pain, vomiting or diarrhea. Genitourinary: Negative for dysuria. Musculoskeletal: Negative for back pain. Positive for neck pain. Positive for left ankle pain. Skin: Negative for rash. Neurological: Negative for headaches, weakness or numbness. 10 point ROS negative except as marked above and in HPI. Physical Exam - Vital signs Vitals: Temp Pulse Resp BP Pulse Ox 98.3 F 110 H 18 170/97 H 99 06/30/20 22:57 06/30/20 22:57 06/30/20 22:57 06/30/20 22:57 06/30/20 22:57 - Notes Notes: CONSTITUTIONAL: Well appearing in no acute distress SKIN: Warm, dry, and intact without rash EYES: Extraocular movements are grossly intact, clear conjunctiva HENT: Normocephalic, atraumatic, moist mucus membranes. Mild tenderness palpation of the left paravertebral cervical muscles. There is no cervical tenderness noted. NECK: No obvious swelling, normal range of motion PULMONARY: Normal chest rise and fall, no respiratory distress or stridor CARDIOVASCULAR: Regular rate, distal extremities are warm and well perfused NEUROLOGIC: Normal speech, moves all extremities MUSCULOSKELETAL: Mild tenderness to the medial aspect of the left ankle. No sig nificant swelling noted. PSYCHIATRIC: Normal mood and affect Course - Re-evaluation Re-evalutation: 07/01/20 02:15 Rechecked patient who has responded well to treatment in the ER. Discussed with patient: results, diagnosis, treatment plan, and need for follow-up. Return to the emergency department warnings were given. All questions and concerns were addressed. The plan is agreed with and understood. Patient is stable and ready for discharge. - Vital Signs Vital signs: Temp Pulse Resp BP Pulse Ox 98.3 F 110 H 18 170/97 H 99 06/30/20 22:57 06/30/20 22:57 06/30/20 22:57 06/30/20 22:57 06/30/20 22:57 - Laboratory Results Critical Laboratory Results Reviewed: No Critical Results - Radiology Results Critical Radiology Results Reviewed: No Critical Results Procedures - Immobilization Left Ankle Time completed: 02:16 Pre-Proc Neuro Vasc Exam: Normal Immobilizer type: Otoniel wrap, Crutches Performed by: RN Post-Proc Neuro Vasc Exam: Normal Alignment checked and good: Yes Discharge - Discharge Clinical Impression: Left ankle sprain Qualifiers: Encounter type: initial encounter Involved ligament of ankle: unspecified ligament Qualified Code(s): S93.402A - Sprain of unspecified ligament of left ankle, initial encounter Cervical strain, acute Qualifiers: Encounter type: initial encounter Qualified Code(s): S16.1XXA - Strain of muscle, fascia and tendon at neck level, initial encounter Condition: Stable Disposition: HOME, SELF-CARE Instructions: Neck Injury (Cervical Strain) ([facility]), Sprained Ankle ([facility]) Referrals: JESSICA SMITH MD [Primary Care Provider] - Follow up as needed
[2020-07-01 02:25] VITALS: BP 168/94
== END 2020-07-01 02:25 | disposition home or self-care (01) ==
LOC: ER 22:49
DX: S16.1XXA Strain of muscle, fascia and tendon at neck level, initial encounter (principal); S93.402A Sprain of unspecified ligament of left ankle, initial encounter; M54.2 Cervicalgia; M25.572 Pain in left ankle and joints of left foot; W01.198A Fall on same level from slipping, tripping and stumbling with subsequent striking against other object, initial encounter; Y93.89 Activity, other specified; I10 Essential (primary) hypertension; Z79.899 Other long term (current) drug therapy; Z88.8 Allergy status to other drugs, medicaments and biological substances; Z88.0 Allergy status to penicillin
CPT/HCPCS: 99284; 73610; 72050; 72070; J3490